=== PATIENT | female | born 1995 | race Caucasian/White ===

== ENCOUNTER 2022-02-20 14:10 | Outpatient (CLI) | payer BC, SELFPAY ==
[2022-02-20 14:46] LABS: Absolute Lymphocyte Count 2.05 X10^3/uL (0.83-4.51); Absolute Neutrophil Count 8.5 X10^3/uL (2.0-7.7); Basophil# 0.01 X10^3/uL; Basophil% 0.1 % (0-1); Eosinophil# 0.08 X10^3/uL; Eosinophils% 0.7 % (0-5); Hematocrit 35.7 % (37-47); Hemoglobin 12.1 g/dL (12.0-15.0); Lymphocyte # 2.05 X10^3/ul (0.83-4.51); Lymphocyte % 17.8 % (19-41); Mean Corp Hgb Conc 33.9 g/dL (32-36); Mean Corpuscular Hgb 29.2 pg (27.0-32.0); Mean Corpuscular Volume 86.2 fL (81-99); Mean Platelet Vol. 11.1 fl (6.2-12.0); Monocyte# 0.75 X10^3/uL; Monocyte% 6.5 % (0-10); NRBC Flagged by Analyzer 0 % (0-5); Neutrophil # 8.54 X10^3/uL (2.7-7.7); Neutrophil % 74.4 % (47-70); Platelet Count 277 K/mm3 (150-450); RBC Distribution Width CV 13.3 % (11.6-14.6); RBC Distribution Width SD 41.3 fl (35.1-43.9); Red Blood Count 4.14 M/mm3 (4.2-5.4); White Blood Count 11.5 K/mm3 (4.4-11.0)
[2022-02-20 16:46] LABS: Amphetamine Urine VISTA NEGATIVE (<1000 ng/mL); Barbiturate Urine VISTA NEGATIVE (< 200 ng/mL); Benzodiazepine Urine VISTA NEGATIVE (< 200 ng/mL); Cocaine Urine VISTA NEGATIVE (< 300 ng/mL); Ecstacy Urine VISTA NEGATIVE (< 500 ng/mL); Methadone Urine VISTA NEGATIVE (< 300 ng/mL); PCP Urine VISTA NEGATIVE (< 25 ng/mL); THC Urine VISTA NEGATIVE (< 50 ng/mL); Vista UDS pH Range 6
[2022-02-21 09:48] LABS: HIV - WCH Non-Reactive (Nonreactive); Hepatitis B Surface Antigen Non-Reactive (Nonreactive); Hepatitis C Antibody Non-Reactive (Nonreactive); Rubella IgG Reactive (Nonreactive); Syphilis Antibodies Non-reactive
[2022-02-23 19:06] LABS: Chlamydia By Nucleic Acid AMP Negative (Negative)
[2022-02-24 15:02] LABS: HPV Reflexed? NOT INDICATED
[2022-02-24 17:53] LABS: Gonococcus By Nucleic Acid AMP Negative (Negative)
[2022-02-25 03:07] LABS: Dilute Russell Viper Venom 31.8 sec (0.0-47.0); Thrombin Time 14.9 sec (0.0-23.0); dPT Confirm Ratio 1.05 Ratio (0.00-1.34)
[2022-02-25 07:32] LABS: Anti-Cardiolipin Ab, IgA, Qn < 9 APL U/mL (0-11); Anti-Cardiolipin Ab, IgG, Qn < 9 GPL U/mL (0-14); Anti-Cardiolipin Ab, IgM, Qn 12 MPL U/mL (0-12); Beta-2-Glycoprotein I IgA <9 (0-25); Beta-2-Glycoprotein I IgG <9 (0-20); Beta-2-Glycoprotein I IgM <9 (0-32); Interpretation Comment: (.)
== END 2022-02-20 23:59 | disposition home or self-care (01) ==
PROVIDERS: PCP Family Medicine; Referring Provider Obstetrics & Gynecology; Visit Provider Obstetrics & Gynecology
DX: Z34.91 Encounter for supervision of normal pregnancy, unspecified, first trimester (principal); N96 Recurrent pregnancy loss; Z3A.08 8 weeks gestation of pregnancy; Z12.4 Encounter for screening for malignant neoplasm of cervix
CPT/HCPCS: 36415; 80307; 85025; 86146; 86147; 86703; 86762; 86780; 86803; 86850; 86900; 86901; 87086; 87340; 87491; 87591; 88175; G0145

== ENCOUNTER → 2022-05-04 | Outpatient (CLI) | payer BC, SELFPAY ==
--- NOTE | 2022-05-04 07:50 | US_ITS ---
STUDY: ABDOMINAL ULTRASOUND - RIGHT UPPER QUADRANT REASON FOR VISIT: Female, 27 years old right upper quadrant pain . The patient is 19 weeks . TECHNIQUE: Ultrasound evaluation of the right upper quadrant was performed with real-time and static garcia-scale imaging. TECHNICAL QUALITY: Adequate. COMPARISON: None. FINDINGS: Liver: The liver measures 16.6 cm. There is normal echogenicity of the liver. The bile ducts are within normal limits. There is hepatic color flow. The direction of portal flow is hepatopetal. There is no demonstrated mass lesion. Gallbladder: Normal distended gallbladder. The gallbladder wall measures 1 mm. There is a negative sonographic Johnson''s sign. There is no pericholecystic fluid. There are multiple echogenic structures within the gallbladder, consistent with multiple small gallstones. Common Bile Duct (C.B.D.): The common bile duct measures 4 mm. Pancreas: Normal size of the head, body and tail of the pancreas. There is normal echogenicity of the pancreas. There is no demonstrated pancreatic mass or cyst. Right Kidney: Normal size of the right kidney. The right kidney measures 10.5 cm x 4.9 cm x 4.2 cm. Normal renal cortex. The right cortex measures 1.1 cm. There is no demonstrated renal mass or cyst. There is no right hydronephrosis. US/Abdomen Limited IMPRESSION: Multiple small gallstones. Electronically Signed: Charles De Leon MD at 10:48 EDT ,
== END | disposition home or self-care (01) ==
LOC: US 07:50
PROVIDERS: PCP Family Medicine; Referring Provider Obstetrics & Gynecology; Visit Provider Obstetrics & Gynecology
DX: O26.899 Other specified pregnancy related conditions, unspecified trimester (principal); R10.11 Right upper quadrant pain; Z3A.00 Weeks of gestation of pregnancy not specified
CPT/HCPCS: 76705

== ENCOUNTER → 2022-05-12 | Outpatient (CLI) | payer BC, SELFPAY ==
[2022-05-12 12:08] LABS: ROM Internal Control Test YES-OK TO RESULT pt. (Internal QC); ROM Patient Test Negative (Negative)
== END | disposition home or self-care (01) ==
PROVIDERS: PCP Family Medicine; Visit Provider Obstetrics & Gynecology
DX: O26.899 Other specified pregnancy related conditions, unspecified trimester (principal); O99.891 Other specified diseases and conditions complicating pregnancy; N89.8 Other specified noninflammatory disorders of vagina; Z3A.00 Weeks of gestation of pregnancy not specified
CPT/HCPCS: 84112; 87070; 87205

== ENCOUNTER → 2022-06-21 | Outpatient (CLI) | payer BC, SELFPAY ==
[2022-06-21 13:22] LABS: Absolute Lymphocyte Count 1.83 X10^3/uL (0.83-4.51); Absolute Neutrophil Count 8.4 X10^3/uL (2.0-7.7); Basophil# 0.02 X10^3/uL; Basophil% 0.2 % (0-1); Eosinophil# 0.07 X10^3/uL; Eosinophils% 0.6 % (0-5); Hematocrit 30.1 % (37-47); Hemoglobin 9.8 g/dL (12.0-15.0); Lymphocyte # 1.83 X10^3/ul (0.83-4.51); Lymphocyte % 16.3 % (19-41); Mean Corp Hgb Conc 32.6 g/dL (32-36); Mean Corpuscular Hgb 29.3 pg (27.0-32.0); Mean Corpuscular Volume 90.1 fL (81-99); Mean Platelet Vol. 10.6 fl (6.2-12.0); Monocyte# 0.79 X10^3/uL; NRBC Flagged by Analyzer 0 % (0-5); Neutrophil # 8.42 X10^3/uL (2.7-7.7); Platelet Count 244 K/mm3 (150-450); RBC Distribution Width CV 13.4 % (11.6-14.6); RBC Distribution Width SD 44.5 fl (35.1-43.9); Red Blood Count 3.34 M/mm3 (4.2-5.4); White Blood Count 11.2 K/mm3 (4.4-11.0)
[2022-06-21 13:33] LABS: Glucose Challenge Gest 1H 50g 120 mg/dL (70-140)
[2022-06-21 14:07] LABS: HIV - WCH Non-Reactive (Nonreactive); Syphilis Antibodies Non-reactive
== END | disposition home or self-care (01) ==
LOC: PAVLAB 12:55
PROVIDERS: Registered Nurse; PCP Family Medicine; Referring Provider Obstetrics & Gynecology; Visit Provider Obstetrics & Gynecology
DX: O09.90 Supervision of high risk pregnancy, unspecified, unspecified trimester (principal); Z3A.00 Weeks of gestation of pregnancy not specified
CPT/HCPCS: 36415; 82950; 85025; 86703; 86780

== ENCOUNTER → 2022-07-10 | Outpatient (CLI) | payer BC, SELFPAY | END | disposition home or self-care (01) | PROVIDERS: PCP Family Medicine; Referring Provider Registered Nurse; Visit Provider Registered Nurse | DX: O26.20 Pregnancy care for patient with recurrent pregnancy loss, unspecified trimester (principal); O99.891 Other specified diseases and conditions complicating pregnancy; R30.0 Dysuria; Z3A.00 Weeks of gestation of pregnancy not specified | CPT/HCPCS: 87086 ==

== ENCOUNTER → 2022-07-28 | Outpatient (CLI) | payer BC, SELFPAY ==
[2022-07-28 09:53] LABS: Absolute Lymphocyte Count 1.54 X10^3/uL (0.83-4.51); Absolute Neutrophil Count 6.1 X10^3/uL (2.0-7.7); Basophil# 0.03 X10^3/uL; Basophil% 0.4 % (0-1); Eosinophils% 1.2 % (0-5); Hematocrit 33.9 % (37-47); Hemoglobin 10.7 g/dL (12.0-15.0); Lymphocyte # 1.54 X10^3/ul (0.83-4.51); Lymphocyte % 18.2 % (19-41); Mean Corp Hgb Conc 31.6 g/dL (32-36); Mean Corpuscular Hgb 29.2 pg (27.0-32.0); Mean Corpuscular Volume 92.6 fL (81-99); Mean Platelet Vol. 11.2 fl (6.2-12.0); Monocyte# 0.64 X10^3/uL; Monocyte% 7.5 % (0-10); NRBC Flagged by Analyzer 0 % (0-5); Neutrophil # 6.07 X10^3/uL (2.7-7.7); Neutrophil % 71.5 % (47-70); Platelet Count 205 K/mm3 (150-450); RBC Distribution Width CV 14.7 % (11.6-14.6); RBC Distribution Width SD 50.3 fl (35.1-43.9); Red Blood Count 3.66 M/mm3 (4.2-5.4); White Blood Count 8.5 K/mm3 (4.4-11.0)
[2022-07-28 10:12] LABS: Iron Binding Capacity,Total 480 ug/dL (250-450)
== END | disposition home or self-care (01) ==
LOC: PAVLAB 09:38
PROVIDERS: PCP Family Medicine; Referring Provider Obstetrics & Gynecology; Visit Provider Obstetrics & Gynecology
DX: O99.019 Anemia complicating pregnancy, unspecified trimester (principal); Z3A.00 Weeks of gestation of pregnancy not specified
CPT/HCPCS: 36415; 83550; 85025

== ENCOUNTER → 2022-07-31 | Outpatient (CLI) | payer BC, SELFPAY ==
--- NOTE | 2022-07-31 08:55 | US_ITS ---
STUDY: SECOND AND THIRD TRIMESTER OBSTETRICAL ULTRASOUND REASON FOR EXAM: Female, 27 years old growth LMP: 12/17/2021. TECHNIQUE: Transabdominal TECHNICAL QUALITY: Adequate. PRIOR ULTRASOUND: None. FINDINGS: There is a single intrauterine fetus. The fetus is in a cephalic presentation. There is demonstrated cardiac activity with a heart rate of 133 bpm. There is a normal amniotic fluid volume. The largest amniotic fluid pocket measures 4.0 cm. The amniotic fluid index (KATHARINA) is 9.3 cm. The placenta is anterior in location and is not low lying. There are Grade 1 placental changes. The cervix measures 4.1 cm in length. The adnexal regions are not visualized. BIOMETRY: BPD: 8.22 cm: 33 weeks, 0 days HC: 29.69 cm: 32 weeks, 6 days AC: 27.34 cm: 31 weeks, 3 days FL: 5.9 cm: 30 weeks, 5 days CI: 81% FL/BPD: 72% FL/HC: FL/AC: 22% HC/AC: 1.09 age by current US: 31 weeks, 6 days. RAJNI by current US: 09/26/2022. Estimated weight: 1790 grams, +/- 2068 grams, 20 %. Age by LMP: 32 weeks, 2 days. RAJNI by LMP: 09/23/2022. US/OB Limited With Biometrics IMPRESSION: Single live uterine gestation with mean gestational age of 31 weeks and 6 days. Electronically Signed: Charles De Leon MD at 14:49 EST ,
== END | disposition home or self-care (01) ==
LOC: OPUS 08:53
PROVIDERS: PCP Family Medicine; Visit Provider Obstetrics & Gynecology
DX: Z34.90 Encounter for supervision of normal pregnancy, unspecified, unspecified trimester (principal); Z86.16 Personal history of COVID-19
CPT/HCPCS: 76816

== ENCOUNTER → 2022-08-28 | Outpatient (CLI) | payer BC, SELFPAY ==
--- NOTE | 2022-08-28 08:59 | US_ITS ---
STUDY: SECOND AND THIRD TRIMESTER OBSTETRICAL ULTRASOUND REASON FOR EXAM: Female, 27 years old growth LMP: 12/17/2021. TECHNIQUE: Transabdominal TECHNICAL QUALITY: Adequate. PRIOR ULTRASOUND: Comparison is made with prior study dated 07/31/2022. FINDINGS: There is a single intrauterine fetus. The fetus is in a cephalic presentation. There is demonstrated cardiac activity with a heart rate of 137 bpm. There is a normal amniotic fluid volume. The largest amniotic fluid pocket measures 3.9 cm. The amniotic fluid index (KATHARINA) is 11.3 cm. The placenta is anterior in location and is not low lying. There are Grade 1 placental changes. The cervix measures 3 cm in length. The adnexal regions are not visualized. BIOMETRY: BPD: 9.04 cm: 36 weeks, 4 days HC: 33.27 cm: 38 weeks, 0 days AC: 32.78 cm: 36 weeks, 5 days FL: 6.7 cm: 34 weeks, 3 days CI: 79% FL/BPD: 74% FL/HC: FL/AC: 20% HC/AC: 1.01 age by current US: 36 weeks, 6 days. RAJNI by current US: 09/19/2022. Estimated weight: 2875 grams, +/- 431 grams, 50 %. age by prior US: 35 weeks, 6 days. RAJNI by prior US: 09/26/2022. Age by LMP: 36 weeks, 2 days. RAJNI by LMP: 09/23/2022. US/OB Limited With Biometrics IMPRESSION: Single live uterine gestation with a mean gestational age of 35 weeks and 6 days. The measurements obtained today fall within the normal expected range. Electronically Signed: Charles De Leon MD at 14:51 EST ,
[2022-08-28 11:48] LABS: Basophil# 0.03 X10^3/uL; Basophil% 0.3 % (0-1); Eosinophil# 0.05 X10^3/uL; Eosinophils% 0.6 % (0-5); Hematocrit 35.2 % (37-47); Hemoglobin 10.9 g/dL (12.0-15.0); Lymphocyte % 19.8 % (19-41); Mean Corpuscular Hgb 29.3 pg (27.0-32.0); Mean Corpuscular Volume 94.6 fL (81-99); Mean Platelet Vol. 11.9 fl (6.2-12.0); Monocyte# 0.69 X10^3/uL; NRBC Flagged by Analyzer 0 % (0-5); Platelet Count 158 K/mm3 (150-450); RBC Distribution Width SD 51.7 fl (35.1-43.9); Red Blood Count 3.72 M/mm3 (4.2-5.4); White Blood Count 8.6 K/mm3 (4.4-11.0)
== END | disposition home or self-care (01) ==
PROVIDERS: PCP Family Medicine; Referring Provider Obstetrics & Gynecology; Visit Provider Obstetrics & Gynecology
DX: O09.90 Supervision of high risk pregnancy, unspecified, unspecified trimester (principal)
CPT/HCPCS: 36415; 76816; 85025; 87081

== ENCOUNTER 2022-09-18 07:00 | Inpatient (IN) | payer BC, SELFPAY ==
[2022-09-18] VITALS (29 sets, daily range): BP systolic 97–166; BP diastolic 57–120; PULSE 64–107; RESP 16; TEMP 36.5–36.6; O2SAT 83–99; BMI 31.7
--- NOTE | 2022-09-18 07:45 | HP.PCM.OB_ITS ---
HPI - General General Date of Admission: 09/18/22 HPI Narrative CRUZ ALVAREZ, is a 27 F who presents for IOL secondary to hisotry of stillbirth. Maternal Data Information RAJNI Calculator Estimated Delivery Date Method Current WG Current Estimate 09/23/22 Ultrasound #1 39w 2d Other Estimates 09/30/22 LMP (Certain) 38w 2d PFSH PFSH Home Medications famotidine 40 mg tablet 40 mg PO DAILY 02/15/22 [History Last Taken Unknown] multivitamin no.47-iron fum 27 mg-folate no.1 1 mg-dha 300 mg capsule (PNV-DHA) cap PO 02/15/22 [History Last Taken Unknown] aspirin 81 mg tablet,delayed release (Adult Aspirin Regimen) 81 mg PO DAILY 04/19/22 [History Last Taken Unknown] Allergy/AdvReac Type Severity Reaction Status Date / Time No Known Allergies Allergy Verified 09/15/22 08:27 Social History adopted: No household members: spouse housing: house current occupational status: employed 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 [employer] current occupational exposures/hazards: No pets and animals: Yes pets and animals: dog(s) history of recent travel: No sexually active: Yes Smoking Status: Never smoker alcohol intake: former details: socially on occasion substance use type: does not use well-balanced diet: about half the time caffeine: Yes Type: coffee Number of servings: 1 eating out: 1-3 times/week during the past year weight has: remained stable what type of physical activity do you participate in: walking frequency: 1-2 times per week duration: 15-30 minutes/day [place]/zoroastrianism: [employer] seatbelt use: always do you feel safe at home: Yes additional social history: Spouse Ag Alvarez- Mobility Architect History 5 Elective abortions Hx Para Spontaneous abortions 4 Hx # Term Pregnancies Ectopic pregnancies Hx # Pregnancies Multiple births # of living children 0 Past Pregnancies Del. Date Name GA/Weeks Outcome Route Bth Weight Infant Gen Labor Lgth Anesthesia Del Locatn Provider FOB 03/09/21 [facility] 26 still Delivery Date: 03/09/21 Last Updated by: MD gamaliel Guzman [facility] Visit Details Expected Delivery Route/Plan Labor Preferences- CB/BF classes: enc. labor support person: Ag labor intervention preferences: [] pain management options preferred: epidural cut cord/dad catch: [] : plans PP control planned: [] discussed possible routes of delivery and associated risks: [] special requests: [] Plans Covid status: [] Flu vaccine: [] Tdap vaccine: [] Rhogam: na LARC form signed: completed. Problem list reviewed and updated with the most current plan of care details and appropriate orders placed. Relevant counseling for the gestational age provided. Continue routine care and follow up unless otherwise noted in visit notes/problem list details OB Flowsheet Initial Weight: Not Recorded Date -?-?-?-?-?-?-?-?-?-?-?-?- EGA Weight BP Urine Prot -?-?-?-?-?-?-?-?-?-?-?-?- Glucose FHR FuHt Pres Dilation -?-?-?-?-?-?-?-?-?-?-?-?- Effaced St Visit Note 02/20/22 -?-?-?-?-?-?-?-?-?-?-?-?- 9w 2d 142 lb 123/80 -?-?-?-?-?-?-?-?-?-?-?-?- 190 -?-?-?-?-?-?-?-?-?-?-?-?- SM- CRL cons wit h LMP 03/09/22 -?-?-?-?-?-?-?-?-?-?-?-?- 11w 5d 140 lb 112/76 Negative -?-?-?-?-?-?-?-?-?-?-?-?- Negative 187 -?-?-?-?-?-?-?-?-?-?-?-?- JV- CRL today lo oks to be exactly a week further along than her LMP and structurally looks more like an 12 week fetus. new due date given. Today is the day last year that she lost her baby at 29 weeks 03/22/22 -?-?-?-?-?-?-?-?-?-?-?-?- 13w 4d 141 lb 112/71 Negative -?-?-?-?-?-?-?-?-?-?-?-?- Negative 170 -?-?-?-?-?-?-?-?-?-?-?-?- JV- bedside scan normal today. nausea is improving. anatomy scan ordered 04/19/22 -?-?-?-?-?-?-?-?-?-?-?-?- 17w 4d 144 lb 6 oz 118/70 Nega tive -?-?-?-?-?-?-?-?-?-?-?-?- Negative 163 -?-?-?-?-?-?-?-?-?-?-?-?- -No VB, radha ng. Feeling light flutters. anatomy 05/0105/12/22 -?-?-?-?-?-?-?-?-?-?-?-?- 20w 6d 143 lb 109/65 Negative -?-?-?-?-?-?-?-?-?-?-?-?- Negative 155 -?-?-?-?-?-?-?-?-?-?-?--?- JV- pt being see n today for leaking fluid. She has a yeast infection on exam. rx for terconazole cream sent to pharmacy. rom+ ordered per her request. no pooling of fluid present, 05/17/22 -?-?-?-?-?-?-?-?-?-?-?-?- 21w 4d 146 lb 6 oz 118/78 Nega tive -?-?-?-?-?-?-?-?-?-?-?-?- Negative 155 -?-?-?-?-?-?-?-?-?-?-?-?- JV- pt is kaylee g nervous as we start to approach the time in her that she lost her last child (26 weeks) wants to come in q 2 weeks. 05/29/22 -?-?-?-?-?-?-?-?-?-?-?-?- 23w 2d 146 lb 2 oz 111/76 Nega tive -?-?-?-?-?-?-?-?-?-?-?-?- Negative 150 23 -?-?-?-?-?-?-?-?-?-?-?-?- LC- feeling move ment. increased anxiety. LC- feeling movement. increa sed anxiety.to start weekly NST r/t still at 26 weeks. 06/21/22 -?-?-?-?-?-?-?-?-?-?-?-?- 26w 4d 148 lb 4 oz 109/67 Nega tive -?-?-?-?-?-?-?-?-?-?-?-?- Negative 150 26 -?-?-?-?-?-?-?-?-?-?-?-?- LC- no vb/lof. r eassuring NST. reviewed 28 week labs. LC- no vb/lof. reassuring NS T for hx of demise at 26 weeks. reviewed 28 week labs. 07/06/22 -?-?-?-?-?-?-?-?-?-?-?-?- 28w 5d 153 lb 2 oz 106/71 Nega tive -?-?-?-?-?-?-?-?-?-?-?-?- Negative -?-?-?-?-?-?-?-?-?-?-?-?- JV- reactive NST today. 07/10/22 -?-?-?-?-?-?-?-?-?-?-?-?- 29w 2d 153 lb 6 oz 110/66 Nega tive -?-?-?-?-?-?-?-?-?-?-?-?- Negative 147 -?-?-?-?-?-?-?-?-?-?-?-?- LC- having cramp ing. desired FHR check. obtaining clean catch urine. LC- having cramping. desired FHR check. obtaining clean catch urine. enc increased hydration and rest 07/14/22 -?-?-?-?-?-?-?-?-?-?-?-?- 29w 6d Negative -?-?-?-?-?-?-?-?-?-?-?-?- Negative 130 -?-?-?-?-?-?-?-?-?-?-?-?- JV- pt c/o infre quent flushing of face and tachycadia. She denies chest pain, shortness of breath, changes in vision or headache. it happened when sitting for a prolonged period of time on our nst. Nst reactive. 07/20/22 -?-?-?-?-?-?-?-?-?-?-?-?- 30w 5d 156 lb 110/73 Negative -?-?-?-?-?-?-?-?-?-?-?--?- Negative 130 -?-?-?-?-?-?-?-?-?-?-?-?- SM- no vb lof go od fm no regular ctx 07/28/22 -?-?-?-?-?-?-?-?-?-?-?-?- 31w 6d 157 lb 101/67 Negative -?-?-?-?-?-?-?-?-?-?-?-?- Negative 140 -?-?-?-?-?-?-?-?-?-?-?-?- JV- nst reactive . pt still having episodes discussed above of tachycardia, tunnel vision, dizziness. (x 2 last week) plan to check tibc, iron, and rpt cbc. hg was 9 and is taking iron. 08/01/22 -?-?-?-?-?-?-?-?-?-?-?-?- 32w 3d 157 lb 8 oz 102/73 Nega tive -?-?-?-?-?-?-?-?-?-?-?-?- Negative 140 -?-?-?-?-?-?-?-?-?-?-?-?- MH-NST only reac tive. 08/08/22 -?-?-?-?-?-?-?-?-?-?-?-?- 33w 3d 157 lb 4 oz 111/72 Nega tive -?-?-?-?-?-?-?-?-?-?-?-?- Negative 140 -?-?-?-?-?-?-?-?-?-?-?-?- SM- no vb lof go od fm no regular ctx 08/17/22 -?-?-?-?-?-?-?-?-?-?-?-?- 34w 5d 158 lb 6 oz 114/74 Nega tive -?-?-?-?-?-?-?-?-?-?-?-?- Negative 140 34 -?-?-?-?-?-?-?-?-?-?-?-?- JV-pt is somewha t tearful today about lessened FM.due to h/o loss will increase testing to twice weekly 08/21/22 -?-?-?-?-?-?-?-?-?-?-?-?- 35w 2d 160 lb 102/80 Negative -?-?-?-?-?-?-?-?-?-?-?-?- Negative 140 -?-?-?-?-?-?-?-?-?-?-?-?- MH-NST only reac tive 08/28/22 -?-?-?-?-?-?-?-?-?-?-?-?- 36w 2d 160 lb 8 oz 102/59 Nega tive -?-?-?-?-?-?-?-?-?-?-?-?- Negative 130 1.5 -?-?-?-?-?-?-?-?-?-?-?-?- 50 -3 SM- gbs do ne no vb lof good fm no regular ctx. discussed IOL by 39 if reassuring FM and testing. 09/01/22 -?-?-?-?-?-?-?-?-?-?-?-?- 36w 6d 161 lb 6 oz 109/66 Nega tive -?-?-?-?-?-?-?-?-?-?-?-?- Negative 130 -?-?-?-?-?-?-?-?-?-?-?-?- JV- nst reactive . plan 39 week IOL 09/04/22 -?-?-?-?-?-?-?-?-?-?-?-?- 37w 2d 162 lb 107/67 Negative -?-?-?-?-?-?-?-?-?-?-?-?- Negative 130 2 -?-?-?-?-?-?-?-?-?-?-?-?- 50 -3 LC- gbs ne g. reactive nst. good fm. no lof/vb, occ ctx, not regular. 09/11/22 -?-?-?-?-?-?-?-?-?-?-?-?- 38w 2d 163 lb 4 oz 119/83 Nega tive -?-?-?-?-?-?-?-?-?-?-?-?- Negative 140 38 3 2 -?-?-?-?-?-?-?-?-?-?-?-?- 60 -2 LC- reacti ve nst. no consistent ctx. +dizziness, occ nausea over the weekend. normal orthostatic BP. 3hour PP glucose 127. LC- reactive nst. no consist ent ctx. +dizziness, occ nausea over the weekend. normal orthostatic BP. 3hour PP glucose 127. IOL to be scheduled for the . LC- reactive nst. no consist ent ctx. +dizziness, occ nausea over the weekend. normal orthostatic BP. 3hour PP glucose 127. IOL scheduled for the at 7am 09/15/22 -?-?-?-?-?-?-?-?-?-?-?-?- 38w 6d 164 lb 8 oz 107/72 Nega tive -?-?-?-?-?-?-?-?-?-?-?-?- Negative 140 3 -?-?-?-?-?-?-?-?-?-?-?-?- 60 -2 SM- no vb lof good fm no regualr ctx 09/18/22 -?-?-?-?-?-?-?-?-?-?-?-?- 39w 2d 168 lb 2 oz 123/74 -?-?-?-?-?-?-?-?-?-?-?-?- -?-?-?-?-?-?-?-?-?-?-?-?- NST FHR Rate Baby A Baseline: 130 Variability:: Moderate Accelerations:: 15 x 15 Decelerations:: None NST Reactive:: Yes FHR Category:: Category I Uterine Activity:: irregular ROS Constitutional Constitutional: Reports systems reviewed and no addt'l complaints, except as documented Eyes Eyes: Denies change in vision ENT HEENT: Reports systems reviewed and no addt'l complaints, except as documented; Denies headache(s) Cardiovascular Cardiovascular: Reports systems reviewed and no addt'l complaints, except as documented; Denies chest pain or dyspnea Respiratory/Chest Respiratory/Chest: Reports systems reviewed and no addt'l complaints, except as documented Gastrointestinal Gastrointestinal: Reports systems reviewed and no addt'l complaints, except as documented; Denies abdominal pain Genitourinary Genitourinary: Reports systems reviewed and no addt'l complaints, except as documented, contractions Details: present (irregular) and movement Details: present; Denies dysuria or genital lesions Musculoskeletal Musculoskeletal: Reports systems reviewed and no addt'l complaints, except as documented Neurologic Neurologic: Reports systems reviewed and no addt'l complaints, except as d ocumented Endocrine Endocrinology: Reports systems reviewed and no addt'l complaints, except as documented Vital Signs Vital Signs Vital Signs: 09/18/22 07:13 09/18/22 07:13 Pulse Rate 94 Blood Pressure 123/74 H BP Systolic 123 BP Diastolic 74 Weight Weight: 168 lb 2 oz Body Mass Index (BMI) 31.7 Physical Exam Const alert, oriented x3, no apparent distress and healthy appearing HEENT normocephalic and moist oral mucous membranes Head and Scalp: atraumatic Neck full ROM, no lymphadenopathy, supple and thyroid normal General: trachea midline Lymph Lymphatic: no lymphadenopathy noted Chest inspection of chest normal Resp normal respiratory effort Cardio regular rate GI normal to inspection, nondistended, normoactive bowel sounds, soft to palpation and non-tender Inspection: gravid external exam normal Manual OB Exam: estimated gestational size appropriate, presentation cephalic, dilated, effaced and station Extremity normal to inspection General Extremity: Negative for edema Skin no rashes or lesions noted Neuro no focal motor deficits and deep tendon reflexes 2+ bilaterally Motor Exam: strength 5/5 throughout and clonus absent Psych mental status grossly normal Labs Labs Labs: Blood Type B POSITIVE Antibody Screen NEGATIVE Hct 35.2 % (37-47) L Hgb 10.9 g/dL (12.0-15.0) L Obstetrics US Syphilis Total Ab Non-reactive Rubella IgG Antibody Reactive (Nonreactive) Hep Bs Antigen Non-Reactive (Nonreactive) Chlamydia DNA (SANDRA) Negative (Negative) Neisseria gonorrhoeae DNA (SANDRA) Negative (Negative) HIV 1&2 Antibody Non-Reactive (Nonreactive) Glucose 1 Hr 50 gm 120 mg/dL (70-140) Assessment & Plan (1) Recurrent loss: COMMENT: 3 first trimester losses and 1 26 week loss. apl panel ordered/neg (2) MTHFR (methylene THF reductase) deficiency and homocystinuria: COMMENT: folate Baby ASA (3) Supervision of high risk , unspecified, unspecified trimester: COMMENT: [id number] RAJNI 09/30/22 PC ([facility]) Spouse- Ag (4) : QUALIFIERS: Weeks of gestation: 37 weeks Qualified Code(s): Z3A.37 - 37 weeks gestation of COMMENT: GBS Negative, declined NIPT & carrier testing, nl anatomy (5) History of COVID-19: COMMENT: 01/30/22 + Covid, asa 81 mg daily, 32 & 36 week Growth US 32 week US NL- 50% growth (6) History of stillbirth: COMMENT: 26 weeks. dtr [facility] wkly nts starting 28 weeks, discuss twice weekly as needed after 32 weeks. 07/31 nl growth 1790g 20% (7) Anemia affecting : COMMENT: iron given (8) Encounter for induction of labor: PLAN: Plan Patient presents IOL, plan management for with pitocin/AROM. Pain management: plans epidural. GBS negative. Management of any complications: none I have reviewed the [facility] and made any clinically relevant updates.
--- NOTE | 2022-09-18 07:45 | PCM.HP.OB ---
HPI - General General Date of Admission: 09/18/22 HPI Narrative CRUZ ALVAREZ, is a 27 F who presents for IOL secondary to hisotry of stillbirth. Maternal Data Information RAJNI Calculator Estimated Delivery Date Method Current WG Current Estimate 09/23/22 Ultrasound #1 39w 2d Other Estimates 09/30/22 LMP (Certain) 38w 2d PFSH PFSH Home Medications famotidine 40 mg tablet 40 mg PO DAILY 02/15/22 [History Last Taken Unknown] multivitamin no.47-iron fum 27 mg-folate no.1 1 mg-dha 300 mg capsule (PNV-DHA) cap PO 02/15/22 [History Last Taken Unknown] aspirin 81 mg tablet,delayed release (Adult Aspirin Regimen) 81 mg PO DAILY 04/19/22 [History Last Taken Unknown] Allergy/AdvReac Type Severity Reaction Status Date / Time No Known Allergies Allergy Verified 09/15/22 08:27 Social History adopted: No household members: spouse housing: house current occupational status: employed 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 [employer] current occupational exposures/hazards: No pets and animals: Yes pets and animals: dog(s) history of recent travel: No sexually active: Yes Smoking Status: Never smoker alcohol intake: former details: socially on occasion substance use type: does not use well-balanced diet: about half the time caffeine: Yes Type: coffee Number of servings: 1 eating out: 1-3 times/week during the past year weight has: remained stable what type of physical activity do you participate in: walking frequency: 1-2 times per week duration: 15-30 minutes/day [place]/adventist: Evangelical seatbelt use: always do you feel safe at home: Yes additional social history: Spouse 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 Date Name GA/Weeks Outcome Route Bth Weight Infant Gen Labor Lgth Anesthesia Del Locatn Provider FOB 03/09/21 [place] 26 still Delivery Date: 03/09/21 Last Updated by: MD gamaliel Guzman [facility] [place] Visit Details Expected Delivery Route/Plan Labor Preferences- CB/BF classes: enc. labor support person: Ag labor intervention preferences: [] pain management options preferred: epidural cut cord/dad catch: [] : plans PP control planned: [] discussed possible routes of delivery and associated risks: [] special requests: [] Plans Covid status: [] Flu vaccine: [] Tdap vaccine: [] Rhogam: na LARC form signed: completed. Problem list reviewed and updated with the most current plan of care details and appropriate orders placed. Relevant counseling for the gestational age provided. Continue routine care and follow up unless otherwise noted in visit notes/problem list details OB Flowsheet Initial Weight: Not Recorded Date <del>?</del> EGA Weight BP Urine Prot <del>?</del> Glucose FHR FuHt Pres Dilation <del>?</del> Effaced St Visit Note 02/20/22 <del>?</del> 9w 2d 142 lb 123/80 <del>?</del> 190 <del>?</del> SM- CRL cons with LMP 03/09/22 <del>?</del> 11w 5d 140 lb 112/76 Negative <del>?</del> Negative 187 <del>?</del> JV- CRL today looks to be exactly a week further along than her LMP and structurally looks more like an 12 week fetus. new due date given. Today is the day last year that she lost her baby at 29 weeks 03/22/22 <del>?</del> 13w 4d 141 lb 112/71 Negative <del>?</del> Negative 170 <del>?</del> JV- bedside scan normal today. nausea is improving. anatomy scan ordered 04/19/22 <del>?</del> 17w 4d 144 lb 6 oz 118/70 Negative <del>?</del> Negative 163 <del>?</del> MH-No VB, cramping. Feeling light flutters. anatomy US 05/0105/12/22 <del>?</del> 20w 6d 143 lb 109/65 Negative <del>?</del> Negative 155 <del>?</del> JV- pt being seen today for leaking fluid. She has a yeast infection on exam. rx for terconazole cream sent to pharmacy. rom+ ordered per her request. no pooling of fluid present, 05/17/22 <del>?</del> 21w 4d 146 lb 6 oz 118/78 Negative <del>?</del> Negative 155 <del>?</del> JV- pt is getting nervous as we start to approach the time in her that she lost her last child (26 weeks) wants to come in q 2 weeks. 05/29/22 <del>?</del> 23w 2d 146 lb 2 oz 111/76 Negative <del>?</del> Negative 150 23 <del>?</del> LC- feeling movement. increased anxiety. LC- feeling movement. increased anxiety.to start weekly NST r/t still at 26 weeks. 06/21/22 <del>?</del> 26w 4d 148 lb 4 oz 109/67 Negative <del>?</del> Negative 150 26 <del>?</del> LC- no vb/lof. reassuring NST. reviewed 28 week labs. LC- no vb/lof. reassuring NST for hx of demise at 26 weeks. reviewed 28 week labs. 07/06/22 <del>?</del> 28w 5d 153 lb 2 oz 106/71 Negative <del>?</del> Negative <del>?</del> JV- reactive NST today. 07/10/22 <del>?</del> 29w 2d 153 lb 6 oz 110/66 Negative <del>?</del> Negative 147 <del>?</del> LC- having cramping. desired FHR check. obtaining clean catch urine. LC- having cramping. desired FHR check. obtaining clean catch urine. enc increased hydration and rest 07/14/22 <del>?</del> 29w 6d Negative <del>?</del> Negative 130 <del>?</del> JV- pt c/o infrequent flushing of face and tachycadia. She denies chest pain, shortness of breath, changes in vision or headache. it happened when sitting for a prolonged period of time on our nst. Nst reactive. 07/20/22 <del>?</del> 30w 5d 156 lb 110/73 Negative <del>?</del> Negative 130 <del>?</del> SM- no vb lof good fm no regular ctx 07/28/22 <del>?</del> 31w 6d 157 lb 101/67 Negative <del>?</del> Negative 140 <del>?</del> JV- nst reactive. pt still having episodes discussed above of tachycardia, tunnel vision, dizziness. (x 2 last week) plan to check tibc, iron, and rpt cbc. hg was 9 and is taking iron. 08/01/22 <del>?</del> 32w 3d 157 lb 8 oz 102/73 Negative <del>?</del> Negative 140 <del>?</del> MH-NST only reactive. 08/08/22 <del>?</del> 33w 3d 157 lb 4 oz 111/72 Negative <del>?</del> Negative 140 <del>?</del> SM- no vb lof good fm no regular ctx 08/17/22 <del>?</del> 34w 5d 158 lb 6 oz 114/74 Negative <del>?</del> Negative 140 34 <del>?</del> JV-pt is somewhat tearful today about lessened FM.due to h/o loss will increase testing to twice weekly 08/21/22 <del>?</del> 35w 2d 160 lb 102/80 Negative <del>?</del> Negative 140 <del>?</del> MH-NST only reactive 08/28/22 <del>?</del> 36w 2d 160 lb 8 oz 102/59 Negative <del>?</del> Negative 130 1.5 <del>?</del> 50 -3 SM- gbs done no vb lof good fm no regular ctx. discussed IOL by 39 if reassuring FM and testing. 09/01/22 <del>?</del> 36w 6d 161 lb 6 oz 109/66 Negative <del>?</del> Negative 130 <del>?</del> JV- nst reactive. plan 39 week IOL 09/04/22 <del>?</del> 37w 2d 162 lb 107/67 Negative <del>?</del> Negative 130 2 <del>?</del> 50 -3 LC- gbs neg. reactive nst. good fm. no lof/vb, occ ctx, not regular. 09/11/22 <del>?</del> 38w 2d 163 lb 4 oz 119/83 Negative <del>?</del> Negative 140 38 3 2 <del>?</del> 60 -2 LC- reactive nst. no consistent ctx. +dizziness, occ nausea over the weekend. normal orthostatic BP. 3hour PP glucose 127. LC- reactive nst. no consistent ctx. +dizziness, occ nausea over the weekend. normal orthostatic BP. 3hour PP glucose 127. IOL to be scheduled for the . LC- reactive nst. no consistent ctx. +dizziness, occ nausea over the weekend. normal orthostatic BP. 3hour PP glucose 127. IOL scheduled for the at 7am 09/15/22 <del>?</del> 38w 6d 164 lb 8 oz 107/72 Negative <del>?</del> Negative 140 3 <del>?</del> 60 -2 SM- no vb lof good fm no regualr ctx 09/18/22 <del>?</del> 39w 2d 168 lb 2 oz 123/74 <del>?</del> <del>?</del> NST FHR Rate Baby A Baseline: 130 Variability:: Moderate Accelerations:: 15 x 15 Decelerations:: None NST Reactive:: Yes FHR Category:: Category I Uterine Activity:: irregular ROS Constitutional Constitutional: Reports systems reviewed and no addt'l complaints, except as documented Eyes Eyes: Denies change in vision ENT HEENT: Reports systems reviewed and no addt'l complaints, except as documented; Denies headache(s) Cardiovascular Cardiovascular: Reports systems reviewed and no addt'l complaints, except as documented; Denies chest pain or dyspnea Respiratory/Chest Respiratory/Chest: Reports systems reviewed and no addt'l complaints, except as documented Gastrointestinal Gastrointestinal: Reports systems reviewed and no addt'l complaints, except as documented; Denies abdominal pain Genitourinary Genitourinary: Reports systems reviewed and no addt'l complaints, except as documented, contractions Details: present (irregular) and movement Details: present; Denies dysuria or genital lesions Musculoskeletal Musculoskeletal: Reports systems reviewed and no addt'l complaints, except as documented Neurologic Neurologic: Reports systems reviewed and no addt'l complaints, except as documented Endocrine Endocrinology: Reports systems reviewed and no addt'l complaints, except as documented Vital Signs Vital Signs Vital Signs: 09/18/22 07:13 09/18/22 07:13 Pulse Rate 94 Blood Pressure 123/74 H BP Systolic 123 BP Diastolic 74 Weight Weight: 168 lb 2 oz Body Mass Index (BMI) 31.7 Physical Exam Const alert, oriented x3, no apparent distress and healthy appearing HEENT normocephalic and moist oral mucous membranes Head and Scalp: atraumatic Neck full ROM, no lymphadenopathy, supple and thyroid normal General: trachea midline Lymph Lymphatic: no lymphadenopathy noted Chest inspection of chest normal Resp normal respiratory effort Cardio regular rate GI normal to inspection, nondistended, normoactive bowel sounds, soft to palpation and non-tender Inspection: gravid external exam normal Manual OB Exam: estimated gestational size appropriate, presentation cephalic, dilated, effaced and station Extremity normal to inspection General Extremity: Negative for edema Skin no rashes or lesions noted Neuro no focal motor deficits and deep tendon reflexes 2+ bilaterally Motor Exam: strength 5/5 throughout and clonus absent Psych mental status grossly normal Labs Labs Labs: Blood Type B POSITIVE Antibody Screen NEGATIVE Hct 35.2 % (37-47) L Hgb 10.9 g/dL (12.0-15.0) L Obstetrics US Syphilis Total Ab Non-reactive Rubella IgG Antibody Reactive (Nonreactive) Hep Bs Antigen Non-Reactive (Nonreactive) Chlamydia DNA (SANDRA) Negative (Negative) Neisseria gonorrhoeae DNA (SANDRA) Negative (Negative) HIV 1&2 Antibody Non-Reactive (Nonreactive) Glucose 1 Hr 50 gm 120 mg/dL (70-140) Assessment & Plan (1) Recurrent loss: COMMENT: 3 first trimester losses and 1 26 week loss. apl panel ordered/neg (2) MTHFR (methylene THF reductase) deficiency and homocystinuria: COMMENT: folate Baby ASA (3) Supervision of high risk , unspecified, unspecified trimester: COMMENT: [id number] RAJNI 09/30/22 PC ([place]) Spouse- Ag (4) : QUALIFIERS: Weeks of gestation: 37 weeks Qualified Code(s): Z3A.37 - 37 weeks gestation of COMMENT: GBS Negative, declined NIPT & carrier testing, nl anatomy (5) History of COVID-19: COMMENT: 01/30/22 + Covid, asa 81 mg daily, 32 & 36 week Growth US 32 week US NL- 50% growth (6) History of stillbirth: COMMENT: 26 weeks. dtr [place] wkly nts starting 28 weeks, discuss twice weekly as needed after 32 weeks. 07/31 nl growth 1790g 20% (7) Anemia affecting : COMMENT: iron given (8) Encounter for induction of labor: PLAN: Plan Patient presents IOL, plan management for with pitocin/AROM. Pain management: plans epidural. GBS negative. Management of any complications: none I have reviewed the [facility] and made any clinically relevant updates.
[2022-09-18 08:18] LABS: Absolute Lymphocyte Count 1.57 X10^3/uL (0.83-4.51); Absolute Neutrophil Count 5.3 X10^3/uL (2.0-7.7); Basophil# 0.02 X10^3/uL; Basophil% 0.3 % (0-1); Eosinophil# 0.07 X10^3/uL; Eosinophils% 0.9 % (0-5); Hematocrit 32.6 % (37-47); Hemoglobin 10.6 g/dL (12.0-15.0); Lymphocyte # 1.57 X10^3/ul (0.83-4.51); Lymphocyte % 20.5 % (19-41); Mean Corp Hgb Conc 32.5 g/dL (32-36); Mean Corpuscular Hgb 30.1 pg (27.0-32.0); Mean Corpuscular Volume 92.6 fL (81-99); Mean Platelet Vol. 12.1 fl (6.2-12.0); Monocyte# 0.64 X10^3/uL; Monocyte% 8.3 % (0-10); NRBC Flagged by Analyzer 0 % (0-5); Neutrophil # 5.31 X10^3/uL (2.7-7.7); Neutrophil % 69.2 % (47-70); Platelet Count 158 K/mm3 (150-450); RBC Distribution Width CV 14.7 % (11.6-14.6); RBC Distribution Width SD 50.4 fl (35.1-43.9); Red Blood Count 3.52 M/mm3 (4.2-5.4); White Blood Count 7.7 K/mm3 (4.4-11.0)
[2022-09-18] MEDS: Lactated Ringers 1,000 ML 50 ML IV (08:24)
[2022-09-18] MEDS: Oxytocin 15 Units/NS 250ml 15 UNITS/250 ML IV.SOLN 2 UNITS IV (08:26)
[2022-09-18 08:53] LABS: Syphilis Antibodies Non-reactive
[2022-09-18] MEDS: LACTATED RINGERS 500 ML 999 ML IV (13:15)
[2022-09-18] MEDS: fentaNYL-bupivacaine (epidural) 100 ML BAG EPIDURAL (13:54)
--- NOTE | 2022-09-18 15:21 | OP.PCM_ITS ---
Assessment & Plan (1) Recurrent loss: COMMENT: 3 first trimester losses and 1 26 week loss. apl panel ordered/neg (2) MTHFR (methylene THF reductase) deficiency and homocystinuria: COMMENT: folate Baby ASA (3) Supervision of high risk , unspecified, unspecified trimester: COMMENT: [id number] RAJNI 09/30/22 PC ([place]) Spouse- Ag (4) : QUALIFIERS: Weeks of gestation: 37 weeks Qualified Code(s): Z3A.37 - 37 weeks gestation of COMMENT: GBS Negative, declined NIPT & carrier testing, nl anatomy (5) History of COVID-19: COMMENT: 01/30/22 + Covid, asa 81 mg daily, 32 & 36 week Growth US 32 week US NL- 50% growth (6) History of stillbirth: COMMENT: 26 weeks. dtr [place] wkly nts starting 28 weeks, discuss twice weekly as needed after 32 weeks. 07/31 nl growth 1790g 20% (7) Anemia affecting : COMMENT: iron given (8) Encounter for induction of labor: (9) Vaginal delivery: COMMENT: SM IAL 39 IOL Maternal Data Information RAJNI Calculator Estimated Delivery Date Method Current WG Current Estimate 09/23/22 Ultrasound #1 39w 2d Other Estimates 09/30/22 LMP (Certain) 38w 2d Vaginal Delivery Operative Information Date of Procedure: 09/18/22 Pre-Operative Diagnosis: see a/p diagnoses Post-Operative Diagnosis: same Surgery / Procedure Performed: Spontaneous Vaginal Delivery Type of Anesthesia: Epidural Special Medications: none Estimated Blood Loss: 200 Fluids Replaced: crystalloid Findings Description of Procedure: Patient began pushing and delivered the head in the RACHEL presentation. The head was delivered atraumatically. The anterior and posterior shoulders delivered without complication followed by the rest of the and the was placed on the maternal abdomen. Delayed cord clamping was employed for approximately 60 seconds. Cord was clamped and cut and gentle traction was applied to the cord and the placenta delivered spontaneously immediately following it was noted to be intact with three-vessel cord. The perineum and vagina were inspected and noted to have a second degree perineal laceration which was repaired in the usual fashion with 3-0 vicryl rapide.. EBL was 200 cc. Patient and infant tolerated delivery well. Amniotic Fluid Description: Clear Placental Delivery Description: Spontaneous Placenta Disposition: [facility] Cord Vessel Description: 3 Vessels Cord Entanglement: None Delayed Cord Clamping: Yes Post Vaginal Delivery Medications Given After Delivery: IV Pitocin Episiotomy Description: None Complication Complications: None Procedures Urinary/Genital [id number]: [id number] Vaginal Delivery [facility]
--- NOTE | 2022-09-18 15:22 | DCINST_ITS ---
Discharge Instructions Diet Discharge Diet: No restrictions Activity Discharge Activity: Return to Normal Activity, May Drive, May Shower and May Take a Tub Bath (in 4 weeks) May resume sexual activity in: 6-8 weeks (after seen by OB provider) Weight Bearing Status: Full weight bearing Lifting Restrictions: none Dressing / Incision Call your doctor if you observe: Fever of 101 or Higher, Inability to urinate, Using more than 1 pad per hour (for more than 2 hours in a row or more), Shortness of breath, Dizziness, Chest pain and - (headache not controlled with tylenol, change in vision) Follow Up Care When: in 6 weeks for visit, call the office to make the appointment. If you had elevated blood pressures call the office to be seen within 1 week. Test Results: Test results from this visit will be discussed in further detail at your follow- up appointment, if applicable. Discharge Plan Admission Admit Date/Time: 09/18/22 07:00 Attending Provider: Kimberly Loya Primary Care Provider: Tyrone Jackson Discharge Orders/Prescriptions Prescriptions: No Action PNV-DHA 27 mg iron-1 mg -300 mg capsule 1 cap PO DAILY famotidine 40 mg tablet 40 mg PO DAILY aspirin [Adult Aspirin Regimen] 81 mg tablet,delayed release (DR/EC) 81 mg PO DAILY ferrous sulfate [Iron (ferrous sulfate)] 325 mg (65 mg iron) Tablet 325 mg PO DAILY Referrals / Follow Up: Tyrone Jackson MD [Primary Care Provider] -
[2022-09-18] MEDS: Oxytocin 15 Units/NS 250ml 15 UNITS/250 ML IV.SOLN 334 UNITS IV (15:52)
[2022-09-18] MEDS: Acetaminophen 500 MG Tablet 1000 MG PO (17:17)
[2022-09-18] MEDS: Benzocaine/Lanolin/Aloe Vera 1 SPRAY EACH TOPICAL (17:21)
[2022-09-18] MEDS: Naproxen 500 MG Tablet PO (20:02)
[2022-09-19] VITALS (10 sets, daily range): BP systolic 100–116; BP diastolic 50–74; PULSE 72–95; RESP 14–18; TEMP 36.1–36.8; O2SAT 98–99
[2022-09-19] MEDS: Acetaminophen 500 MG Tablet 1000 MG PO ×3 (00:26→15:34)
--- NOTE | 2022-09-19 07:58 | PCM.PN.OB ---
Subjective Subjective Patient doing well without complaints. Tolerating PO. Ambulating and voiding without difficulty. Feeding well. Denies chest pain, shortness of breath, calf pain/swelling, fevers, chills, lightheadedness. Objective Data Objective Data Vital Signs: Vital Signs Temp Pulse Resp BP Pulse Ox O2 Del Method 97 F L 72 14 100/50 L 97 Room Air 09/19/22 03:37 09/19/22 03:37 09/19/22 03:37 09/19/22 03:37 09/18/22 13:59 09/19/22 03:37 Oxygen Delivery Method Room Air Weight: 168 lb 2 oz Body Mass Index (BMI) 31.7 Intake & Output: Intake and Output for Last 24 Hours 09/17/22 09/18/22 09/19/22 23:59 23:59 23:59 Intake Total 1530.97 / 1530.97 Output Total 600 / 600 Balance 930.97 / 930.97 Lab / Micro Data Attestation: I reviewed the patient's lab results. Result Diagrams: 09/18/22 08:05 Labs: Laboratory Results - last 24 hr 09/18/22 08:05: WBC 7.7, RBC 3.52 L, Hgb 10.6 L, Hct 32.6 L, MCV 92.6, MCH 30.1, MCHC 32.5, RDW Std Deviation 50.4 H, RDW Coeff of [place] 14.7 H, Plt Count 158, MPV 12.1 H, Immature Gran % (Auto) 0.800, Neut % (Auto) 69.2, Lymph % (Auto) 20.5, [place] % (Auto) 8.3, Eos % (Auto) 0.9, Baso % (Auto) 0.3, Absolute Neuts (auto) 5.3, Absolute Lymphs (auto) 1.57, Nucleated RBC % 0 09/18/22 08:05: Blood Type B POSITIVE, Antibody Screen NEGATIVE 09/18/22 08:05: Syphilis Total Ab Non-reactive ROS Constitutional Constitutional: Reports systems reviewed and no addt'l complaints, except as documented Cardiovascular Cardiovascular: Reports systems reviewed and no addt'l complaints, except as documented Respiratory/Chest Respiratory/Chest: Reports systems reviewed and no addt'l complaints, except as documented Gastrointestinal Gastrointestinal: Reports systems reviewed and no addt'l complaints, except as documented Genitourinary Genitourinary: Reports systems reviewed and no addt'l complaints, except as documented Musculoskeletal Musculoskeletal: Reports systems reviewed and no addt'l complaints, except as documented Psychiatric Psychiatric: Reports systems reviewed and no addt'l complaints, except as documented; Denies anxiety Physical Exam Const General Appearance: cooperative and comfortable Chest inspection of chest normal Resp normal respiratory effort and no retractions GI normal to inspection, nondistended, normoactive bowel sounds and soft to palpation Uterus Palpation: uterus fundus firm (1 below U) Extremity normal to inspection and full ROM Neuro moves all extremities Psych mental status grossly normal Assessment & Plan (1) Vaginal delivery: COMMENT: SM IAL 39 IOL PLAN: s/p PPD # 1 1. routine post delivery care 2. breast feeding- support given 3. rh positive 4. rubella immune 5. Discharge home
== END 2022-09-19 18:35 | disposition home or self-care (01) | DRG 806 ==
PROVIDERS: Admitting Provider Obstetrics & Gynecology; PCP Family Medicine; Visit Provider Obstetrics & Gynecology
DX: O26.23 Pregnancy care for patient with recurrent pregnancy loss, third trimester (principal); Z37.0 Single live birth; E72.12 Methylenetetrahydrofolate reductase deficiency; E72.11 Homocystinuria; O99.284 Endocrine, nutritional and metabolic diseases complicating childbirth; O70.1 Second degree perineal laceration during delivery; O99.02 Anemia complicating childbirth; Z3A.39 39 weeks gestation of pregnancy; Z79.82 Long term (current) use of aspirin; Z79.899 Other long term (current) drug therapy; Z86.16 Personal history of COVID-19
CPT/HCPCS: 59025; 59050; 85025; 86780; 86850; 86900; 86901; 99221; J7120; G0378

== ENCOUNTER → 2022-09-26 | Outpatient (CLI) | payer BC, SELFPAY | END | disposition home or self-care (01) | LOC: LABSPEC 10:08 | PROVIDERS: PCP Family Medicine; Referring Provider Nurse Practitioner Women's Health; Visit Provider Nurse Practitioner Women's Health | DX: R30.0 Dysuria (principal) | CPT/HCPCS: 87077; 87086; 87088; 87186 ==

== ENCOUNTER 2022-10-09 11:01 | Emergency (ER) | payer BC, SELFPAY ==
[2022-10-09 11:02] VITALS: BP 95/62; PULSE 70; RESP 16; TEMP 36.2; O2SAT 98; BMI 27.6
--- NOTE | 2022-10-09 11:17 | EX.ED.DYSGE1 ---
HPI History of Present Illness Chief Complaint: Fatigue Narrative Narrative: 27-year-old female here for fatigue. The patient states has been feeling this way since vaginal delivery 3 weeks ago. Does note she is being recently treated for UTI. No she is history of anemia she is on iron. She does complain of shortness of breath and dizziness as well. The patient denies recent surgery in the last 4 weeks or immobilization in the last 3 days, denies previous diagnosis of DVT or PE, hemoptysis, unilateral leg swelling or malignancy with treatment the last 6 months. No estrogen use noted. PFSH PFSH Home Medications famotidine 40 mg tablet 40 mg PO DAILY 02/15/22 [History Last Taken 09/18/22] multivitamin no.47-iron fum 27 mg-folate no.1 1 mg-dha 300 mg capsule (PNV-DHA) 1 cap PO DAILY 02/15/22 [History Last Taken 09/18/22] aspirin 81 mg tablet,delayed release (Adult Aspirin Regimen) 81 mg PO DAILY 04/19/22 [History Last Taken 09/18/22] ferrous sulfate 325 mg (65 mg iron) tablet (Iron (ferrous sulfate)) 325 mg PO DAILY 09/18/22 [History Last Taken 09/18/22] Allergy/AdvReac Type Severity Reaction Status Date / Time No Known Allergies Allergy Verified 10/09/22 11:08 Social History adopted: No household members: spouse housing: house current occupational status: employed 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 [employer] current occupational exposures/hazards: No pets and animals: Yes pets and animals: dog(s) history of recent travel: No sexually active: Yes Smoking Status: Never smoker alcohol intake: former details: socially on occasion substance use type: does not use well-balanced diet: about half the time caffeine: Yes Type: coffee Number of servings: 1 eating out: 1-3 times/week during the past year weight has: remained stable what type of physical activity do you participate in: walking frequency: 1-2 times per week duration: 15-30 minutes/day [place]/orthodox: [employer] seatbelt use: always do you feel safe at home: Yes additional social history: Spouse Ag Antonio- Jose G ROS ROS ED ROS Narrative Constitutional: Denies fever HEENT: Denies sore throat Neck: Denies neck pain Cardiovascular: Denies chest pain, syncope Respiratory: Denies shortness of breath GI: Denies nausea vomiting or abdominal pain : Denies changes in urinary habits Musculoskeletal: Denies muscle or joint pain Neurologic: Denies numbness weakness or loss of sensation Skin denies rash EXAM Physical Exam Narrative Exam Narrative: Nursing triage notes reviewed, Vital signs reviewed Constitutional: please see mdm HENT: MMM Eyes: Pupils equal round and reactive to light, Extraocular muscles intact Neck: No stridor, no JVD, full neck ROM Lungs: Clear to auscultation, No wheezing or rales. No increased work of breathing, no conversational dyspnea, no accessory muscle use, no nasal flaring. No respiratory distress noted Heart: Regular rate and rhythm, No murmurs, No rubs and No gallops, 2+ distal pulses (radial, femoral, posterior tibial) in all extremities Abdomen: Soft, there is no tenderness, rigidity, rebound or guarding, no obvious peritoneal signs, no palpable pulsatile abdominal masses, no auscultated abdominal bruit : No CVAT Extremities: No edema Neuro: No focal neurological deficits, cranial nerves II through XII intact, 5/5 strength in all extremities. Intact sensation to light touch in all extremities, 2+ reflexes bilateral patella dens. Normal gait. No ataxia. Skin: No rash or lesions noted Const Vital Signs: 10/09/22 11:02 10/09/22 11:09 10/09/22 11:19 Temperature 97.1 F L Temperature Source Temporal Pulse Rate 70 Respiratory Rate 16 18 Respiratory Effort Normal Non-Labored Respiratory Pattern Normal Blood Pressure 95/62 107/57 L Blood Pressure Mean 73 73 Pulse Ox 98 98 Oxygen Delivery Method Room Air Room Air 10/09/22 13:08 Temperature Temperature Source Pulse Rate 46 L Respiratory Rate 19 H Respiratory Effort Respiratory Pattern Blood Pressure Blood Pressure Mean Pulse Ox 99 Oxygen Delivery Method [place] [facility] [place] Medical decision making narrative: Chief Complaint: Fatigue, dizziness and shortness of breath External records reviewed: No recent advanced imaging of the chest I considered the following differential diagnosis: Dehydration, anemia, arrhythmia, UTI, PE I considered pulmonary embolism however do not think this is the most likely diagnosis given the patient's lack of risk factors. Wells score of 0. No indication for emergent CT at this time. I obtained a broad lab and imaging work-up to further elucidate the etiology the patient's complaint. Labs, imaging are unremarkable. No clear etiology of could explain the patient's complaint. She is appropriate for discharge home with close outpatient [facility] follow-up. Factors affecting care: Anemia, recent spontaneous vaginal delivery Social determinants of health: No drug use endorsed History obtained from others: None Shared decision making: I will have a discussion with the patient and or visitors regarding risk/benefits of further testing or admission. They will be made aware of of the risk/benefits inherent in this decision they will be given the opportunity to voice understanding. Consults: none Lab Data Attestation: I reviewed the patient's lab results. Lab results narrative: CBC without leukocytosis, severe anemia, no thrombocytopenia. Urinalysis without evidence of UTI BMP without evidence of significant electrolyte abnormalities, no anion gap, no acute kidney injury. LFTs show no evidence of hepatobiliary pathology. Troponin is negative, no evidence of myocardial ischemia Lipase is wnl indicating no pancreatic inflammation. Labs: Laboratory Results - last 24 hr 10/09/22 10/09/22 10/09/22 12:20 12:26 12:26 WBC 6.5 RBC 4.22 Hgb 12.6 Hct 38.2 MCV 90.5 MCH 29.9 MCHC 33.0 RDW Std Deviation 43.4 RDW Coeff of [place] 13.1 Plt Count 232 MPV 11.1 Immature Gran % (Auto) 0.200 Neut % (Auto) 55.5 Lymph % (Auto) 34.9 [place] % (Auto) 7.2 Eos % (Auto) 1.7 Baso % (Auto) 0.5 Absolute Neuts (auto) 3.6 Absolute Lymphs (auto) 2.27 Nucleated RBC % 0 Sodium 139 Potassium 4.1 Chloride 109 H Carbon Dioxide 27.0 Anion Gap 3 L BUN 12 Creatinine 0.81 Estim Creat Clear Calc 79.42 Est GFR (MDRD) Af Amer 110 Est GFR (MDRD) Non-Af 91 BUN/Creatinine Ratio 14.9 Glucose 76 Calcium 9.0 Total Bilirubin 0.30 Direct Bilirubin 0.09 AST 20 ALT 36 Alkaline Phosphatase 92 Troponin I High Sens < 3 L Total Protein 7.0 Albumin 3.5 Globulin 3.5 Lipase 152 Urine Color Yellow Urine Clarity Sl. Cloudy Urine pH 7.0 Ur Specific [place] 1.010 Urine Protein Negative Urine Glucose (UA) Normal Urine Ketones Negative Urine Occult Blood 25 H Urine Nitrite Negative Urine Bilirubin Negative Urine Urobilinogen Normal Ur Leukocyte Esterase 25 H Urine RBC 0-5 SEEN Urine WBC 0-5 SEEN Ur Squamous Epith Cells 0-5 SEEN Urine Bacteria 0 SEEN Urine Mucus 0 SEEN Radiography Chest X-Ray - ED: Read by ED Physician Diagnostic Testing: Clinical Impression(s) from Imaging Studies Chest X-Ray 10/09/22 12:30 IMPRESSION: Normal x-ray examination of the chest. Electronically Signed: Diogo Cleary MD at 12:40 EDT Reading Location ID and State: [facility] / ID , Service support , I have personally reviewed the patient's chest x-ray. Chest x-ray is unremarkable for pulmonary edema, pneumothorax, pneumonia or focal cardiopulmonary abnormality. EKG Initial EKG: Attestation: I personally reviewed and interpreted this EKG as follows: Comments: EKG with normal sinus rhythm, normal axis, no intervals, no STEMI Discharge Plan Triage Chief Complaint: Fatigue ED Provider: Mike Oneil Dx/Rx/DC Orders Instructions: ED Weakness (Uncertain Cause) Prescriptions: No Action PNV-DHA 27 mg iron-1 mg -300 mg capsule 1 cap PO DAILY famotidine 40 mg tablet 40 mg PO DAILY aspirin [Adult Aspirin Regimen] 81 mg tablet,delayed release (DR/EC) 81 mg PO DAILY ferrous sulfate [Iron (ferrous sulfate)] 325 mg (65 mg iron) Tablet 325 mg PO DAILY Stand Alone Forms: ED Work / School Excuse Primary Care Provider: Tyrone Jackson Referrals: Tyrone Jackson MD [Primary Care Provider] - Disposition Disposition: Home, Self Care
[2022-10-09 11:19] VITALS: BP 107/57; RESP 18; O2SAT 98
[2022-10-09] MEDS: 0.9% Normal Saline 1,000 ML 1000 ML IV (12:27)
--- NOTE | 2022-10-09 12:30 | RAD_ITS ---
STUDY: X-RAY CHEST REASON FOR EXAM: Female, 27 years old. Fatigue TECHNIQUE: Single AP portable view of the chest. COMPARISON: None. FINDINGS: EKG leads overlie the chest The lungs are clear and expanded. There is no demonstrated pleural abnormality. Normal size heart. Normal mediastinum and frances. Normal visualized pulmonary arteries. Normal visualized aortic arch and descending thoracic aorta. Normal visualized thoracic spine. Normal visualized ribs, clavicles, and shoulders. There is no demonstrated abnormality of the visualized soft tissue structures of the upper abdomen. RAD/Chest 1 View (Portable) IMPRESSION: Normal x-ray examination of the chest. Electronically Signed: Diogo Cleary MD at 12:40 EDT ,
[2022-10-09 12:32] LABS: Bacteria 0 SEEN /hpf (None Seen); Mucous, Urine 0 SEEN /hpf (<or=2+)
[2022-10-09 12:34] LABS: Absolute Lymphocyte Count 2.27 X10^3/uL (0.83-4.51); Absolute Neutrophil Count 3.6 X10^3/uL (2.0-7.7); Basophil# 0.03 X10^3/uL; Basophil% 0.5 % (0-1); Eosinophil# 0.11 X10^3/uL; Eosinophils% 1.7 % (0-5); Hematocrit 38.2 % (37-47); Hemoglobin 12.6 g/dL (12.0-15.0); Lymphocyte # 2.27 X10^3/ul (0.83-4.51); Lymphocyte % 34.9 % (19-41); Mean Corpuscular Hgb 29.9 pg (27.0-32.0); Mean Corpuscular Volume 90.5 fL (81-99); Mean Platelet Vol. 11.1 fl (6.2-12.0); Monocyte# 0.47 X10^3/uL; Monocyte% 7.2 % (0-10); NRBC Flagged by Analyzer 0 % (0-5); Neutrophil # 3.62 X10^3/uL (2.7-7.7); Neutrophil % 55.5 % (47-70); Platelet Count 232 K/mm3 (150-450); RBC Distribution Width CV 13.1 % (11.6-14.6); RBC Distribution Width SD 43.4 fl (35.1-43.9); Red Blood Count 4.22 M/mm3 (4.2-5.4); White Blood Count 6.5 K/mm3 (4.4-11.0)
[2022-10-09 12:34] LABS: Color, Urine Yellow (Yellow); Glucose, Dipstick Normal (Normal); Ketone-Dipstick Negative (Negative); Leukocyte Esterase-Dipstick 25 /ul (Negative); Nitrite-Dipstick Negative (Negative); Occult Blood-Urine 25 /ul (Negative); Protein-Dipstick Negative (Negative); Urine Bilirubin Dipstick Negative (Negative); Urine Clarity Sl. Cloudy (Clear); Urine Urobilinogen Normal (Normal)
[2022-10-09 12:44] LABS: Red Blood Cells-Urine 0-5 SEEN /hpf (0-5); Squamous Epithelial Cells - UA 0-5 SEEN /hpf (5-10); White Blood Cells 0-5 SEEN /hpf (0-5)
[2022-10-09 12:54] LABS: AST(SGOT) 20 U/L (15-37); Alanine Aminotransfer ALT/SGPT 36 U/L (13-56); Albumin, Serum 3.5 g/dL (3.2-5.0); Alkaline Phosphatase 92 U/L (45-117); Anion Gap 3 (5-15); BUN 12 mg/dL (7-18); BUN/Creat Ratio 14.9 RATIO (10-20); Bilirubin, Direct 0.09 mg/dL (0.00-0.30); Chloride 109 mmol/L (98-107); Creatinine, Serum 0.81 mg/dL (0.55-1.02); EST Glomerular Filtration Rate 91 mL/min (>60); Est Glom Filt Rate - Afr Amer 110 mL/min (>60); Estimated Creatinine Clearance 79.42 ml/min; Globulin 3.5 g/dL (2.2-4.2); Glucose 76 mg/dL (74-106); Lipase 152 U/L (73-393); Potassium 4.1 mmol/L (3.5-5.1); Sodium Level 139 mmol/L (136-145); Troponin-I HS < 3 pg/mL (3.0-54.0)
[2022-10-09 13:08] VITALS: PULSE 46; RESP 19; O2SAT 99
[2022-10-09 14:19] VITALS: BP 114/74; PULSE 51; RESP 15; O2SAT 97
== END 2022-10-09 14:23 | disposition home or self-care (01) ==
PROVIDERS: Emergency Provider Emergency Medicine; PCP Family Medicine; Visit Provider Emergency Medicine
DX: R53.1 Weakness (principal); Z79.82 Long term (current) use of aspirin
CPT/HCPCS: 71045; 80048; 80076; 81001; 83690; 84484; 85025; 87428; 93005; 96360; 99283; J7030; A4216

== ENCOUNTER → 2022-11-03 | Outpatient (CLI) | payer BC, SELFPAY ==
[2022-11-03 11:56] LABS: Absolute Lymphocyte Count 2.18 X10^3/uL (0.83-4.51); Absolute Neutrophil Count 4.7 X10^3/uL (2.0-7.7); Basophil# 0.02 X10^3/uL; Basophil% 0.3 % (0-1); Eosinophil# 0.15 X10^3/uL; Hematocrit 41.4 % (37-47); Hemoglobin 13.2 g/dL (12.0-15.0); Lymphocyte # 2.18 X10^3/ul (0.83-4.51); Lymphocyte % 28.7 % (19-41); Mean Corp Hgb Conc 31.9 g/dL (32-36); Mean Corpuscular Hgb 28.7 pg (27.0-32.0); Monocyte# 0.51 X10^3/uL; Monocyte% 6.7 % (0-10); NRBC Flagged by Analyzer 0 % (0-5); Neutrophil % 61.9 % (47-70); Platelet Count 289 K/mm3 (150-450); RBC Distribution Width CV 12.9 % (11.6-14.6); RBC Distribution Width SD 42.5 fl (35.1-43.9); White Blood Count 7.6 K/mm3 (4.4-11.0)
[2022-11-03 12:21] LABS: Vitamin D,25 Hydroxy 27.6 ng/mL
[2022-11-03 12:29] LABS: AST(SGOT) 24 U/L (15-37); Alanine Aminotransfer ALT/SGPT 51 U/L (13-56); Alkaline Phosphatase 90 U/L (45-117); Anion Gap 9 (5-15); BUN 14 mg/dL (7-18); BUN/Creat Ratio 18.1 RATIO (10-20); Chloride 109 mmol/L (98-107); Creatinine, Serum 0.77 mg/dL (0.55-1.02); EST Glomerular Filtration Rate 95 mL/min (>60); Est Glom Filt Rate - Afr Amer 115 mL/min (>60); Globulin 3.9 g/dL (2.2-4.2); Glucose 87 mg/dL (74-106); Potassium 4.3 mmol/L (3.5-5.1); Protein, Total 7.9 g/dL (6.4-8.2); Sodium Level 141 mmol/L (136-145); T4 Free Direct 0.91 ng/dL (0.76-1.46)
== END | disposition home or self-care (01) ==
LOC: PAVLAB 11:40
PROVIDERS: PCP Family Medicine; Referring Provider Obstetrics & Gynecology; Visit Provider Obstetrics & Gynecology
DX: O80 Encounter for full-term uncomplicated delivery (principal); O99.63 Diseases of the digestive system complicating the puerperium; O99.893 Other specified diseases and conditions complicating puerperium; K80.20 Calculus of gallbladder without cholecystitis without obstruction; R53.83 Other fatigue; R42 Dizziness and giddiness; Z3A.00 Weeks of gestation of pregnancy not specified
CPT/HCPCS: 36415; 80053; 82306; 84439; 84443; 85025

== ENCOUNTER → 2023-02-22 | Outpatient (CLI) | payer BC, SELFPAY ==
[2023-02-26 08:07] LABS: Chlamydia By Nucleic Acid AMP Negative (Negative); Gonococcus By Nucleic Acid AMP Negative (Negative)
== END | disposition home or self-care (01) ==
LOC: LABSPEC 15:36
PROVIDERS: PCP Family Medicine; Referring Provider Obstetrics & Gynecology; Visit Provider Obstetrics & Gynecology
DX: Z34.90 Encounter for supervision of normal pregnancy, unspecified, unspecified trimester (principal)
CPT/HCPCS: 87077; 87086; 87088; 87491; 87591

== ENCOUNTER → 2023-05-01 | Outpatient (CLI) | payer BC, SELFPAY ==
[2023-05-01 11:05] LABS: Absolute Lymphocyte Count 1.64 X10^3/uL (0.83-4.51); Absolute Neutrophil Count 8.3 X10^3/uL (2.0-7.7); Basophil# 0.04 X10^3/uL; Basophil% 0.4 % (0-1); Eosinophil# 0.14 X10^3/uL; Eosinophils% 1.3 % (0-5); Hematocrit 36.2 % (37-47); Lymphocyte # 1.64 X10^3/ul (0.83-4.51); Lymphocyte % 15.3 % (19-41); Mean Corp Hgb Conc 33.1 g/dL (32-36); Mean Corpuscular Hgb 29.3 pg (27.0-32.0); Mean Corpuscular Volume 88.5 fL (81-99); Mean Platelet Vol. 10.8 fl (6.2-12.0); Monocyte# 0.61 X10^3/uL; Monocyte% 5.7 % (0-10); NRBC Flagged by Analyzer 0 % (0-5); Neutrophil # 8.25 X10^3/uL (2.7-7.7); Neutrophil % 76.7 % (47-70); Platelet Count 250 K/mm3 (150-450); RBC Distribution Width CV 13.3 % (11.6-14.6); RBC Distribution Width SD 43.2 fl (35.1-43.9); Red Blood Count 4.09 M/mm3 (4.2-5.4); White Blood Count 10.7 K/mm3 (4.4-11.0)
[2023-05-01 12:42] LABS: HIV - WCH Non-Reactive (Nonreactive); Hepatitis B Surface Antigen Non-Reactive (Nonreactive); Hepatitis C Antibody Non-Reactive (Nonreactive); Rubella IgG Reactive (Nonreactive); Syphilis Antibodies Non-reactive
== END | disposition home or self-care (01) ==
PROVIDERS: PCP Family Medicine; Referring Provider Obstetrics & Gynecology; Visit Provider Obstetrics & Gynecology
DX: Z34.90 Encounter for supervision of normal pregnancy, unspecified, unspecified trimester (principal)
CPT/HCPCS: 36415; 85025; 86703; 86762; 86780; 86803; 86850; 86900; 86901; 87340

== ENCOUNTER → 2023-07-10 | Outpatient (CLI) | payer BC, SELFPAY ==
[2023-07-10 11:26] LABS: Absolute Lymphocyte Count 1.64 X10^3/uL (0.83-4.51); Absolute Neutrophil Count 7.1 X10^3/uL (2.0-7.7); Basophil# 0.03 X10^3/uL; Basophil% 0.3 % (0-1); Eosinophil# 0.15 X10^3/uL; Eosinophils% 1.5 % (0-5); Hematocrit 32.1 % (37-47); Hemoglobin 10.4 g/dL (12.0-15.0); Lymphocyte # 1.64 X10^3/ul (0.83-4.51); Lymphocyte % 16.8 % (19-41); Mean Corp Hgb Conc 32.4 g/dL (32-36); Mean Corpuscular Hgb 29.6 pg (27.0-32.0); Mean Corpuscular Volume 91.5 fL (81-99); Mean Platelet Vol. 10.5 fl (6.2-12.0); Monocyte# 0.75 X10^3/uL; Monocyte% 7.7 % (0-10); NRBC Flagged by Analyzer 0 % (0-5); Neutrophil # 7.13 X10^3/uL (2.7-7.7); Neutrophil % 73.1 % (47-70); Platelet Count 227 K/mm3 (150-450); RBC Distribution Width CV 13.1 % (11.6-14.6); RBC Distribution Width SD 43.6 fl (35.1-43.9); Red Blood Count 3.51 M/mm3 (4.2-5.4); White Blood Count 9.8 K/mm3 (4.4-11.0)
[2023-07-10 11:54] LABS: Glucose Challenge Gest 1H 50g 106 mg/dL (70-140)
--- OUTSIDE RECORDS SUMMARY | 2023-07-10 11:57 | XMS RPT_ITS | CCD ---
Author Name Unknown Address [address] [place] [address] Organization [facility] Care Team Providers Care Manager Business Systems Name Role Phone REFERRING, PHY WO ID Unavailable Unavailable ELLEN MIRZA Unavailable Unavailable REFERRING, PHY WO ID Unavailable Unavailable TYRONE WILLAMS MD Primary Care Physician Tyrone Willams MD Primary Care Provider Tamera Friedman CGC Unavailable Unavailab Tyrone Aguero MD Primary Care Provider ROCK RENEE, SHAHEED Attending TYRONE Murray MD Primary Care Unavailable ROCK RENEE, SHAHEED Attending TYRONE Murray MD Primary Care Unavailable ROCK RENEE, SHAHEED Attending UnavailTYRONE Lozoya MD Primary Care Unavailable TYRONE WILLAMS MD Attending Unavailable TYRONE WILLAMS MD Primary Care Unavailable TYRONE WILLAMS MD Attending Unavailable TYRONE WILLAMS MD Primary Care Unavailable JESSE MERCADO Attending Unavailable TORRIE STEWART Referring Unavailable TYRONE WILLAMS Primary Care Unavailable YANA PATTERSON Attending Unavailable ELISABETH SOLOMON Referring UnavailTRYONE Lozoya Primary Care Unavailable Medications Current Medications Medication Drug Class(es) Dates Sig (Normalized) Sig (Original) Ascorbic Acid (1 source) Vitamin C Start: 06-07-2022 Vitamin C qDay, 0 Refill(s) Start Date: 06/07/22 Status: Ordered Azithromycin 5 Day Dose Pack 250 mg oral tablet (1 source) Start: 06-09-2022 End: 06-14-2022 Azithromycin 5 Day Dose Pack 250 mg oral tablet Take two (2) tablets day 1-then one (1) tablet, Oral, Daily, X 5 day(s), # 6 tab(s), 0 Refill(s), 06/14/22 9:04:00 EST, Pharmacy: [facility], 157.3, cm, 06/07/22 15:34:00 EST, Height, 67.8 Start Date: 06/09/22 Stop Date: 06/14/22 Status: Ordered benzonatate 100 mg oral capsule (1 source) Non-narcotic Antitussive Start: 01-15-2022 End: 01-25-2022 take 1 capsule by mouth every eight hours as needed for cough and cough benzonatate (TESSALON PERLES) 100 mg capsule Indications: Cough, unspecified type Take 1 capsule by mouth three times daily as needed for cough for up to 10 days. Pleas check with your EMERGENCY MEDICINE NURSE PRACTITIONER if ok to take 30 capsule 0 01/15/2022 01/25/2022 Active Completed/Discontinued Medications Medication Drug Class(es) Dates Sig (Normalized) Sig (Original) aspirin 81 mg delayed release oral tablet (5 sources) Platelet Aggregation Inhibitor, Nonsteroidal Anti-inflammatory Drug Start: 07-05-2020 aspirin, enteric coated (ASPIRIN, ENTERIC COATED) 81 mg EC tablet 81 mg once daily. 0 07/05/2020 Active Problems Active Problems Problem Classification Problem Date Documented Date Episodic/Chronic Abdominal pain (2 sources) Unspecified abdominal pain; Translations: [Unspecified abdominal pain] Onset: 12-07-2022 Episodic Contraceptive and procreative management (1 source) Patient encounter status; Translations: [Encounter for other general counseling and advice on procreation] Onset: 09-05-2021 09-05-2021 Episodic Other female genital disorders (1 source) History of recurrent miscarriage - not ; Translations: [Recurrent loss] Onset: 08-31-2021 08-31-2021 Episodic Other lower respiratory disease (4 sources) Dyspnea 03-13-2021 Episodic Other lower respiratory disease (2 sources) Cough; Translations: [Cough, unspecified type] Episodic Other nutritional; endocrine; and metabolic disorders (4 sources) 5,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 Residual codes; unclassified (2 sources) History of intrauterine ; Translations: [Personal history of other complications of , childbirth and the puerperium] Onset: 08-31-2021 Episodic Residual codes; unclassified (1 source) Hereditary disorder of endocrine system; 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 other disease] Onset: 08-31-2021 09-05-2021 Episodic Residual codes; unclassified (1 source) H/O: 06-07-2022 Episodic Unclassified (1 source) Cough, unspecified; Translations: [Cough, unspecified] Onset: 06-07-2022 Past or Other Problems Problem Classification Problem Date Documented Da te Episodic/Chronic Genitourinary symptoms and ill-defined conditions (2 sources) Dysuria; Translations: [DYSURIA] Onset: 12-28-2016 Episodic Nonspecific chest pain (6 sources) Chest pain; Translations: [Chest pain, unspecified] Onset: 06-07-2022 03-13-2021 Episodic Other complications of (2 sources) Supervision of with other poor reproductive or obstetric history, third trimester; Translations: [Supervision of with other poor reproductive or obstetric history, third trimester] Onset: 06-07-2022 Episodic Other upper respiratory infections (3 sources) Pharyngitis; Translations: [Acute pharyngitis, unspecified] Onset: 06-07-2022 06-07-2022 Episodic Unclassified (1 source) Cough, unspecified; Translations: [Cough, unspecified] Onset: 06-07-2022 Results Test Name Value Interpretation Reference Range Facil ity Vital Signs Date Time Vital Sign Value Performing Clinician Faci lity 01-15-2022 11:26-0400 Body temperature 97.81 [degF] Diego Brandon MD Work Phone: [facility] 01-15-2022 11:26-0400 Body weight 65.77 kg Diego Brandon MD Work Phone: [facility] 01-15-2022 11:26-0400 Diastolic blood pressure 86 mm[Hg] Diego Brandon MD Work Phone: [facility] 01-15-2022 11:26-0400 Heart rate 87 /min Diego Brandon MD Work Phone: [facility] 01-15-2022 11:26-0400 Respiratory rate 16 /min Diego Brandon MD Work Phone: [facility] 01-15-2022 11:26-0400 SaO2% (BldA) [Mass fraction] 99 % Diego Brandon MD Work Phone: [facility] 01-15-2022 11:26-0400 Systolic blood pressure 105 mm[Hg] Diego Brandon MD Work Phone: [facility] Encounters Encounter Date Encounter Type Care Provider Facility Start: 06-14-2023 End: 06-14-2023 ambulatory YANA PATTERSON [facility] Start: 05-29-2023 End: 05-29-2023 ambulatory JESSE BRICEÑOE [facility] Start: 12-27-2022 ambulatory TYRONE WILLAMS MD Faci lity:B Start: 12-07-2022 ambulatory [facility] ADULT LITERACY TEACHER-INCLUSION SPECIALIST Fa cility:B Start: 12-07-2022 End: 12-12-2022 ambulatory [facility] ADULT LITERACY TEACHER-INCLUSION SPECIALIST Facility:B Start: 12-07-2022 End: 12-08-2022 ambulatory [facility] ADULT LITERACY TEACHER-INCLUSION SPECIALIST Facility:B Start: 06-07-2022 End: 06-12-2022 ambulatory TYRONE WILLAMS MD Facility:B Start: 06-07-2022 End: 06-11-2022 Outreach Lab TYRONE WILLAMS MD [facility] Start: 01-15-2022 End: 01-15-2022 Office outpatient new 30 minutes Diego Brandon MD Work Phone: [facility] Procedures Date Procedure Procedure Detail Performing Clinician Start: 01-15-2022 Adult depression scr eening assessment Diego Brandon MD Work Phone: Tonsillectomy [facility] ESTRADA ON ADULT LITERACY TEACHER-CNM Tooth extraction [facility]OLO BLEVINS MPSON ADULT LITERACY TEACHER-CNM Plan of Treatment Date Care Activity Detail Author Start: 01-15-2023 Adult depression screening assessment DEPRESSION SCREENING [facility] Start: 03-02-2022 Influenza vaccination INFLUENZA (#1) [facility] Start: 03-02-2021 FLU (#1) FLU (#1) [facility] Start: 02-06-2017 Microscopic observat ion [Identifier] in Cervix by Cyto stain Pap Smear [facility] Start: 02-06-2017 PAP TESTING PAP TESTING [facility] Start: 02-06-2015 Urine microalbumin profile DTAP,TDAP,TD (1 - Tdap) [facility] Start: 02-06-2014 HEPATITIS C SCREENING HEPATITIS C SC REENING [facility] Start: 02-06-2014 HIV SCREENING HIV SCREENING [facility] Start: 2012 MenB (1 of 2 - MenB 2-Dose Series) MenB (1 of 2 - MenB 2-Dose Series) [facility] Start: 02-06-2010 PEDS TO ADULT TRANSI TION ANNUAL ASSESSMENT PEDS TO ADULT TRANSITION ANNUAL ASSESSMENT [facility] Start: 2008 PEDS TO ADULT TRANSI TION INITIAL DISCUSSION PEDS TO ADULT TRANSITION INITIAL DISCUSSION [facility] Start: 02-06-2007 HPV (1 - 2-dose series) HPV (1 - 2-dose series) [facility] Start: 02-06-2007 HPV VACCINE (1 - 2-d ose series) HPV VACCINE (1 - 2-dose series) [facility] Start: 02-06-2003 Tetanus Diphtheria a nd Pertussis Vaccines (1 - Tdap) Tetanus Diphtheria and Pertussis Vaccines (1 - Tdap) [facility] Start: 02-06-2001 COVID-19 (1) COVID-19 (1) [facility] Start: 02-06-1997 MMR (1 of 1 - Standa rd series) MMR (1 of 1 - Standard series) [facility] Start: 02-06-1997 Varicella (1 of 2 - 2-dose childhood series) Varicella (1 of 2 - 2-dose childhood series) [facility] Start: 1996 COVID-19 VACCINE (#1) COVID-19 VACCI NE (#1) [facility] End: 10-08-2021 Homocysteine, total plasma [facility] Work Phone: Payers Date Payer Category Payer Self-pay 2022 Unknown [id number] 2021 Unknown ANTHEM [employer]THSTER[employer]ING SP[employer]ER BS PPO [id number] 2021-Present [address] [place] [address] [id number] 2021 Unknown ANTHEM MARCELINA ACCE SS PPO [id number] 2021-Present [phone] [address] [place] [address] PPO [id number] 1996 Unknown [id number] 1996 Unknown [id number] 1996 Unknown [id number] 1996 Unknown [id number] 1996 Unknown [id number] 1996 Unknown [id number] 1996 Unknown [id number] 1996 Unknown [id number] Social History Date Type Detail Facility Start: 03-25-2020 End: 01-15-2022 Never smoked tobacco (finding) [facility] Sex Assigned At Female [facility] Start: 08-31-2021 End: 01-15-2022 Tobacco use and exposure Smokeless tobacco non-user [facility] Start: 09-05-2021 End: 01-15-2022 Alcohol intake Current drinker of alcohol (finding) [facility] Start: 08-31-2021 History SDOH Alcohol Comment occasional [facility] Start: 1996 Sex Assigned At Not on file [facility] Start: 09-28-2021 End: 01-15-2022 Exposure to SARS-CoV-2 (event) Not sure [facility] Clinical Note 12-08-2022 Note Date & Type Note Facility 12-08-2022 Note . MICRO - Microbiology PROCEDURE: Urine Culture [*1] SOURCE: Urine, Clean Catch BODY SITE: COLLECTED DATE/TIME: 12/07/2022 13:31 EDT RECEIVED DATE/TIME: 12/07/2022 19:09 EDT START DATE/TIME: 12/07/2022 19:09 EDT FREE TEXT SOURCE: FINAL REPORTS Final Report [] Verified Date/Time/Personnel: 12/08/2022 14:16 EDT >100,000 cfu/ml Group B Beta Hemolytic Strep (Strep agalactiae) Sensitivity testing is not recommended for one of the following reasons: 1. Established susceptibility patterns are available or 2. Interpretative criteria are not available. Performing Locations *1: This test was performed at: [facility], [address] [place] [address], [address] [place] [address] (ID) SARS-CoV-2 (COVID-19) RNA SANDRA+probe Ql (Nph) 06-08-2022 Note Date & Type Note Facility 06-08-2022 SARS-CoV-2 (COVID -19) RNA SANDRA+probe Ql (Nph) Negative *NA* (06/08/22 5:08 PM) AO Auto Urine SS Progress note 01-15-2022 Note Date & Type Note Facility 01-15-2022 Note HNO ID: [id number] Author: Diego Brandon MD Service: ? Author Type: Physician Type: Progress Notes Filed: 01/15/2022 12:17 PM Note Text: Cruz Alvarez is a 26 year old FEMALE who presents with Cough (3 weeks) dry couigh for 3 weeks No other sympmtoms History reviewed. No pertinent past medical history. There is no problem list on file for this patient. Current Outpatient Medications Medication Sig Dispense Refill - vit/iron fum/folic ac ( 1 + 1 ORAL) once daily. - aspirin, enteric coated (ASPIRIN, ENTERIC COATED) 81 mg EC tablet 81 mg once daily. - famotidine (PEPCID) 40 mg tablet Take by mouth once daily. No current facility-administered medications for this visit. Social History Tobacco Use - Smoking status: Never Smoker - Smokeless tobacco: Never Used Vaping Use - Vaping Use: Never used Substance Use Topics - Alcohol use: Yes - Drug use: Never Alcohol Use: Yes Tobacco Use: Never History reviewed. No pertinent family history. Review of Systems Respiratory: Positive for cough. All other systems reviewed and are negative. BP 105/86 Pulse 87 Temp 97.8 Resp 16 Wt 145 lb (65.8kg) SpO2 99% LMP 12/24/2021 Physical Exam Vitals reviewed. Constitutional: Appearance: Normal appearance. HENT: Nose: Nose normal. No congestion or rhinorrhea. Mouth/Throat: Mouth: Mucous membranes are moist. Pharynx: Oropharynx is clear. No posterior oropharyngeal erythema. Cardiovascular: Rate and Rhythm: Normal rate and regular rhythm. Heart sounds: Normal heart sounds. Pulmonary: Breath sounds: Normal breath sounds. No wheezing, rhonchi or rales. Neurological: Mental Status: She is alert. ASSESSMENT/PLAN: 1. Cough, unspecified type - ICD9: 786.2, ICD10: R05.9 - BENZONATATE 100 MG CAPSULE No antibiotic is needed right now F/U PCP for further care Check with your EMERGENCY MEDICINE NURSE PRACTITIONER if Ok to take this med Diego Brandon MD [facility] Instructions 01-15-2022 Patient Instructions Note Date & Type Note Facility 01-15-2022 Instructions Diego Brandon MD - 01/15/2022 12:15 PM EDT No antibiotic is needed right now F/U PCP for further care Check with your EMERGENCY MEDICINE NURSE PRACTITIONER if Ok to take this med Explained documented in this encounter [facility] History of Present illness Narrative 01-15-2022 Diego Brandon MD - 01/15/2022 12:10 PM EDT Note Date & Type Note Facility 01-15-2022 History of Presen t illness Narrative Cruz Alvarez is a 26 year old FEMALE who presents with Cough (3 weeks) dry couigh for 3 weeks No other sympmtoms History reviewed. No pertinent past medical history. There is no problem list on file for this patient. Current Outpatient Medications Medication Sig Dispense Refill vit/iron fum/folic ac ( 1 + 1 ORAL) once daily. aspirin, enteric coated (ASPIRIN, ENTERIC COATED) 81 mg EC tablet 81 mg once daily. famotidine (PEPCID) 40 mg tablet Take by mouth once daily. No current facility-administered medications for this visit. Social History Tobacco Use Smoking status: Never Smoker Smokeless tobacco: Never Used Vaping Use Vaping Use: Never used Substance Use Topics Alcohol use: Yes Drug use: Never Alcohol Use: Yes Tobacco Use: Never History reviewed. No pertinent family history. Review of Systems Respiratory: Positive for cough. All other systems reviewed and are negative. BP 105/86 Pulse 87 Temp 97.8 Resp 16 Wt 145 lb (65.8kg) SpO2 99% LMP 12/24/2021 Physical Exam Vitals reviewed. Constitutional: Appearance: Normal appearance. HENT: Nose: Nose normal. No congestion or rhinorrhea. Mouth/Throat: Mouth: Mucous membranes are moist. Pharynx: Oropharynx is clear. No posterior oropharyngeal erythema. Cardiovascular: Rate and Rhythm: Normal rate and regular rhythm. Heart sounds: Normal heart sounds. Pulmonary: Breath sounds: Normal breath sounds. No wheezing, rhonchi or rales. Neurological: Mental Status: She is alert. ASSESSMENT/PLAN: 1. Cough, unspecified type - ICD9: 786.2, ICD10: R05.9 - BENZONATATE 100 MG CAPSULE No antibiotic is needed right now F/U PCP for further care Check with your EMERGENCY MEDICINE NURSE PRACTITIONER if Ok to take this med Diego Brandon MD documented in this encounter [facility] Evaluation + Plan note Note Date & Type Note Facility Evaluation + Plan note No data available for this section [facility] Evaluation note Note Date & Type Note Facility documented in this encounter [facility] Evaluation note Note Date & Type Note Facility documented in this encounter [facility] Discharge instructions Note Date & Type Note Facility Hospital Discharge instructions No data available for this section [facility] Progress note Note Date & Type Note Facility Progress note No data available for this section [facility] Summary Purpose Family History No Family History Records FoundNo Family History Records FoundNo Family History Records FoundNo Family History Records FoundNo Family History Records Found Advance Directives No Advanced Directives Records FoundDocuments on File Type Date 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 Power of Whitewasher Additional Source Comments INFORMATION SOURCE (unrecogn ized section and content) DATE CREATED AUTHOR AUTHOR'S ORGANIZ ATION 09/30/2020 [employer] DATE CREATED AUTHOR AUTHOR'S ORGANIZ ATION 01/19/2022 [facility] DATE CREATED AUTHOR AUTHOR'S ORGANIZ ATION 12/28/2022 [facility] ([place]) DATE CREATED AUTHOR AUTHOR'S ORGANIZ ATION 06/17/2023 [facility] Care Teams (unrecognized sec tion and content) Manager Business Systems Relationship Specialty Start Date End Date Tyrone Willams MD [address] [place] [address] PCP - General Family Practice 01/15/22 Source Comments (unrecognize d section and content) In the event this informatio n is protected by the Federal Confidentiality of Alcohol and Drug Abuse Patient Records regulations: The Federal rules restrict any use of the information to criminally investigate or prosecute any alcohol or drug abuse patient.[facility] Reason for Visit (unrecogniz ed section and content) Care Team (unrecognized sect ion and content) Care Team Personnel Name: TYRONE WILLAMS MD Position: P4 Physician - Primary Care Member Role: Primary Care Physician Address: Address: [address] [place] [address] Juan Garcia [place], [place] [address] Care Team Related Persons Name: JESSIKA PERALES Address: [address] [place], [place] [id number] Name: AMANDA PERALES Name: AMANDA PERALES Name: AMANDA PERALES FOR RECORDS PERTAINING TO PATIENTS WHO ARE OR HAVE BEEN ENROLLED IN A CHEMICAL DEPENDENCY/SUBSTANCEABUSE PROGRAM, SOME INFORMATION MAY BE OMITTED. This clinical summary was aggregated from multiple sources. Caution should be exercised in using it in the provision of clinical care. This summary normalizes information from multiple sources, and as a consequence, information in this document may materially change the coding, format and clinical context of patient data. In addition, data may be omitted in some cases. CLINICAL DECISIONS SHOULD BE BASED ON THE PRIMARY CLINICAL RECORDS. [employer] provides no warranty or guarantee of the accuracy or completeness of information in this document.
[2023-07-10 14:07] LABS: HIV - WCH Non-Reactive (Nonreactive); Syphilis Antibodies Non-reactive
== END | disposition home or self-care (01) ==
LOC: PAVLAB 10:59
PROVIDERS: PCP Family Medicine; Referring Provider Obstetrics & Gynecology; Visit Provider Obstetrics & Gynecology
DX: O09.90 Supervision of high risk pregnancy, unspecified, unspecified trimester (principal); Z13.1 Encounter for screening for diabetes mellitus; Z3A.00 Weeks of gestation of pregnancy not specified
CPT/HCPCS: 36415; 82950; 85025; 86703; 86780

== ENCOUNTER → 2023-08-07 | Outpatient (CLI) | payer BC, SELFPAY | END | disposition home or self-care (01) | LOC: LABSPEC 12:44 | PROVIDERS: PCP Family Medicine; Referring Provider Advanced Practice Midwife; Visit Provider Advanced Practice Midwife | DX: R30.0 Dysuria (principal) | CPT/HCPCS: 87077; 87086; 87088; 87186 ==

== ENCOUNTER 2023-08-23 12:29 | Outpatient (CLI) | payer BC, SELFPAY ==
[2023-08-23] VITALS (7 sets, daily range): BP systolic 109–117; BP diastolic 59–64; PULSE 75–98; TEMP 37–37.5; O2SAT 97; BMI 30.6
--- OUTSIDE RECORDS SUMMARY | 2023-08-23 12:55 | XMS RPT_ITS | CCD ---
Author Name Unknown Address [address] [place] [address] Organization [facility] Care Team Providers Care Manager Meat Name Role Phone REFERRING, PHY WO ID [...] Care Unavailable TYRONE WILLAMS Primary Care Unavailable JESSE MERCADO Attending Unavailable [...] tab(s), 0 Refill(s), 06/14/22 9:04:00 EST, Pharmacy: [facility], 157.3, cm, 06/07/22 15:34:00 EST, Height, [...] to 10 days. Pleas check with your CLOTH GRADER if ok to take 30 capsule 0 [...] 97.81 [degF] Diego Brandon MD Work Phone: [facility] 01-15-2022 11:26-040 Body weight 65.77 kg Diego Brandon MD Work Phone: [facility] 01-15-2022 11:26-040 Diastolic blood pressure 86 mm[Hg] Diego Brandon MD Work Phone: [facility] 01-15-2022 11:26-040 Heart rate 87 /min Diego Brandon MD Work Phone: [facility] 01-15-2022 11:26-0400 Respiratory rate 16 /min Diego Brandon MD Work Phone: [facility] 01-15-2022 11:26-0400 SaO2% (BldA) [Mass fraction] 99 % Diego Brandon MD Work Phone: [facility] 01-15-2022 11:26-0400 Systolic blood pressure 105 mm[Hg] Diego Brandon MD Work Phone: [facility] Encounters Encounter Date Encounter Type Care Provider Facility Start: 07-24-2023 End: 07-24-2023 ambulatory ROX F [facility] Start: 06-14-2023 End: 06-14-2023 [facility] Start: 05-29-2023 End: 05-29-2023 ambulatory TYRONE WILLAMS [facility] Start: 12-27-2022 ambulatory TYRONE WILLAMS MD Faci lity:B Start: 12-07-2022 ambulatory [facility] DECORATOR CONSULTANT-NUCLEAR SCIENTIST Fa cility:B Start: 12-07-2022 End: 12-12-2022 ambulatory [facility] DECORATOR CONSULTANT-NUCLEAR SCIENTIST Facility:B Start: 12-07-2022 End: 12-08-2022 ambulatory [facility] DECORATOR CONSULTANT-NUCLEAR SCIENTIST Facility:B Start: 06-07-2022 End: 06-12-2022 ambulatory TYRONE WILLAMS MD Facility:B Start: 06-07-2022 End: 06-11-2022 Outreach Lab TYRONE WILLAMS MD [facility] Start: 01-15-2022 End: 01-15-2022 Office outpatient new 30 minutes Diego Brandon MD Work Phone: [facility] Procedures Date Procedure Procedure Detail Performing Clinician Start: 01-15-2022 Adult depression scr eening assessment Diego Brandon MD Work Phone: Tonsillectomy CHOLO ENCARNACIONSARITA ON DECORATOR CONSULTANT-CNM Tooth extraction CHOLO SINGLETON DECORATOR CONSULTANT-CNM Plan of Treatment Date Care Activity Detail Author Start: 01-15-2023 Adult depression screening assessment DEPRESSION SCREENING [facility] Start: 03-02-2022 Influenza vaccination INFLUENZA (#1) [facility] Start: 03-02-2021 FLU (#1) FLU (#1) [facility] Start: 02-06-2017 Microscopic observat ion [Identifier] in Cervix by Cyto stain Pap Smear [facility] Start: 02-06-2017 PAP TESTING PAP TESTING [facility] Start: 02-06-2015 Urine microalbumin profile DTAP,TDAP,TD (1 - Tdap) [facility] Start: 02-06-2014 HEPATITIS C SCREENING HEPATITIS C SC REENING [facility] Start: 02-06-2014 HIV SCREENING HIV SCREENING [facility] Start: 2012 MenB (1 of 2 - MenB 2-Dose Series) MenB (1 of 2 - MenB 2-Dose Series) [facility] Start: 02-06-2010 PEDS TO ADULT TRANSI TION ANNUAL ASSESSMENT PEDS TO ADULT TRANSITION ANNUAL ASSESSMENT [facility] Start: 2008 PEDS TO ADULT TRANSI TION INITIAL DISCUSSION PEDS TO ADULT TRANSITION INITIAL DISCUSSION [facility] Start: 02-06-2007 HPV (1 - 2-dose series) HPV (1 - 2-dose series) [facility] Start: 02-06-2007 HPV VACCINE (1 - 2-d ose series) HPV VACCINE (1 - 2-dose series) [facility] Start: 02-06-2003 Tetanus Diphtheria a nd Pertussis Vaccines (1 - Tdap) Tetanus Diphtheria and Pertussis Vaccines (1 - Tdap) [facility] Start: 02-06-2001 COVID-19 (1) COVID-19 (1) [facility] Start: 02-06-1997 MMR (1 of 1 - Standa rd series) MMR (1 of 1 - Standard series) [facility] Start: 02-06-1997 Varicella (1 of 2 - 2-dose childhood series) Varicella (1 of 2 - 2-dose childhood series) [facility] Start: 1996 COVID-19 VACCINE (#1) COVID-19 VACCI NE (#1) [facility] End: 10-08-2021 Homocysteine, total plasma [facility] Work Phone: Payers Date Payer Category Payer Self-pay 2022 Unknown [id number] 2021 Unknown ANTHEM ANTHEM BC BS PPO [id number] 2021-Present [address] [place] [address] [id number] 2021 Unknown ANTHEM BLUE ACCE SS PPO [id number] 2021-Present [phone] [address] [place] [address] PPO [id number] 1996 Unknown [id number] 1996 Unknown [id number] 1996 Unknown [id number] 1996 Unknown [id number] 1996 Unknown [id number] 1996 Unknown [id number] 1996 Unknown [id number] 1996 Unknown [id number] 1996 Unknown [id number] Social History Date Type Detail Facility Start: 03-25-2020 End: 01-15-2022 Never smoked tobacco (finding) [facility] Sex Assigned At Female [facility] Start: 08-31-2021 End: 01-15-2022 Tobacco use and exposure Smokeless tobacco non-user [facility] Start: 09-05-2021 End: 01-15-2022 Alcohol intake Current drinker of alcohol (finding) [facility] Start: 08-31-2021 History SDOH Alcohol Comment occasional [facility] Start: 1996 Sex Assigned At Not on file A [facility] Start: 09-28-2021 End: 01-15-2022 Exposure to SARS-CoV-2 (event) Not sure [facility] Clinical Note 12-08-2022 Note Date & [...] Locations *1: This test was performed at: [facility], [address] [place] [address], [facility] , [facility] ([place]) SARS-CoV-2 (COVID-19) RNA SANDRA+probe Ql (Nph) 06-08-2022 Note Date & Type Note Facility 06-08-2022 SARS-CoV-2 (COVID -19) RNA SANDRA+probe Ql (Nph) Negative *NA* (06/08/22 5:08 PM) AO Auto Urine SS Progress note 01-15-2022 Note Date & Type Note Facility 01-15-2022 Note HNO ID: [id number] Author: Diego Brandon MD Service: ? Author [...] PCP for further care Check with your CLOTH GRADER if Ok to take this med Diego Brandon MD [facility] Instructions 01-15-2022 Patient Instructions Note Date & Type Note Facility 01-15-2022 Instructions Diego Brandon MD - 01/15/2022 12:15 PM EDT No antibiotic is needed right now F/U PCP for further care Check with your CLOTH GRADER if Ok to take this med Explained documented in this encounter [facility] History of Present illness Narrative 01-15-2022 [...] PCP for further care Check with your CLOTH GRADER if Ok to take this med Diego Brandon MD documented in this encounter [facility] Evaluation + Plan note Note Date & Type Note Facility Evaluation + Plan note No data available for this section [facility] Evaluation note Note Date & Type Note Facility documented in this encounter [facility] Evaluation note Note Date & Type Note Facility documented in this encounter [facility] Discharge instructions Note Date & Type Note Facility Hospital Discharge instructions No data available for this section [facility] Progress note Note Date & Type Note Facility Progress note No data available for this section [facility] Summary Purpose Family History No Family History Records FoundNo Family History Records FoundNo Family History Records FoundNo Family History Records FoundNo Family History Records Found Advance Directives No Advanced Directives Records FoundDocuments on File Type Date Recorded Patient Core Composer Machine Tender Expl anation Power of Sole Splitter Additional Source Comments INFORMATION SOURCE (unrecogn ized section and content) DATE CREATED AUTHOR AUTHOR'S ORGANIZ ATION 09/30/2020 [employer] DATE CREATED AUTHOR AUTHOR'S ORGANIZ ATION 01/19/2022 [facility] DATE CREATED AUTHOR AUTHOR'S ORGANIZ ATION 12/28/2022 [facility] ([place]) DATE CREATED AUTHOR AUTHOR'S ORGANIZ ATION 07/25/2023 [facility] Care Teams (unrecognized sec tion and content) Manager Meat Relationship Specialty Start Date End Date Tyrone Willams MD [address] [place] [address] PCP - General Family Practice 01/15/22 Source Comments (unrecognize d section and content) In the event this informatio n is protected by the Federal Confidentiality of Alcohol and Drug Abuse Patient Records regulations: The Federal rules restrict any use of the information to criminally investigate or prosecute any alcohol or drug abuse patient.[facility] Reason for Visit (unrecogniz ed section and content) Care Team (unrecognized sect ion and content) Care Team Personnel Name: TYRONE WILLAMS MD Position: P4 Physician - Primary Care Member Role: Primary Care Physician Address: Address: [address] [place] [address] [address] Care Team Related Persons Name: JESSIKA PERALES Address: [address] [place], [place] [id number] Name: AMANDA PERALES Name: AMANDA PERALES Name: [...] BE BASED ON THE PRIMARY CLINICAL RECORDS. [facility] [employer] [facility]. provides no warranty or guarantee of the accuracy or completeness of information in this document.
[2023-08-23] MEDS: Betamethasone/Betamethasone 30 MG/5 ML Vial 12 MG IM (13:15)
--- NOTE | 2023-08-23 18:05 | OB.TRI.HP_ITS ---
HPI - General HPI Narrative CRUZ ALVAREZ, is a 28 y/o @ 32 weeks 1 day who returns to L&D with more frequent contractions. She was seen on L&D earlier today and was given celestone x 1 for threatened labor. Her cx at the time was found to be 1/50/-1 and unchanged. She is currently unchanged but complains of some back tightening. The contraction pain is rated low and not picking up on the monitor. Nurse is able to palpate mild contractions every 3 minutes however. Maternal Data Information RAJNI Calculator Estimated Delivery Date Method Current WG Current Estimate 10/17/23 Ultrasound #1 32w 1d Other Estimates 10/08/23 LMP (Certain) 33w 3d [facility] Medical History demise, greater than 22 weeks, antepartum Vaginal delivery Home Medications famotidine 40 mg tablet 40 mg PO DAILY 02/15/22 [History Last Taken 09/18/22] multivitamin no.47-iron fum 27 mg-folate no.1 1 mg-dha 300 mg capsule (PNV-DHA) 1 cap PO DAILY 02/15/22 [History Last Taken 09/18/22] aspirin 81 mg tablet,delayed release (Adult Aspirin Regimen) 81 mg PO DAILY 04/19/22 [History Last Taken 09/18/22] ferrous sulfate 325 mg (65 mg iron) tablet 325 mg PO DAILY 08/23/23 [History Last Taken Unknown] magnesium oxide 500 mg capsule 500 mg PO DAILY 08/23/23 [History Last Taken Unknown] Allergy/AdvReac Type Severity Reaction Status Date / Time No Known Allergies Allergy Verified 08/23/23 11:29 Family History Brother Autism Mother Pulmonary HTN Aunt Pulmonary HTN maternal Grandmother Pulmonary HTN Maternal Breast cancer maternal Surgical History Hx of tonsillectomy [place] teeth extracted Social History adopted: No household members: spouse and children housing: house number of children: 1 current occupational status: employed 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 current occupational exposures/hazards: No pets and animals: Yes pets and animals: dog(s) history of recent travel: No sexually active: Yes Smoking Status: Never smoker alcohol intake: former details: socially on occasion- not while substance use type: does not use well-balanced diet: about half the time caffeine: Yes Type: coffee Number of servings: 1 eating out: rarely or never during the past year weight has: remained stable what type of physical activity do you participate in: none [place]/jehovah's witness: Congregational seatbelt use: always do you feel safe at home: Yes additional social history: Spouse Ag 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 Date Name GA/Weeks Outcome Route Bth Weight Infant Gen Labor Lgth Anesthesia Del Locatn Provider FOB 03/09/21 Kev 26 still 09/18/22 Finlee 39 live - full term 6#11 Male epid ural [facility] Delivery Date: 03/09/21 Last Updated by: Sravanthi Flores MD [facility] Visit Details Expected Delivery Route/Plan if placenta normal location Labor Preferences- CB/BF classes: [] labor support person: [] labor intervention preferences: [] pain management options preferred: [] cut cord/dad catch: [] : [] PP control planned: [] discussed possible routes of delivery and associated risks: [] special requests: [] Plans Covid status: declined Flu vaccine: declined Tdap vaccine: [] Rhogam: [] LARC form signed: [] movement and labor precautions reviewed. Problem list reviewed and updated with the most current plan of care details and appropriate orders placed. Relevant counseling for the gestational age provided. Continue routine care and follow up unless otherwise noted in visit notes/problem list details OB Flowsheet Initial Weight: Not Recorded Date -?-?-?-?-?-?-?-?-?-?-?-?- EGA Weight BP Urine Prot -?-?-?-?-?-?-?-?-?-?-?-?- Glucose FHR FuHt Pres Dilation -?-?-?-?-?-?-?-?-?-?-?-?- Effaced St Visit Note 02/22/23 -?-?-?-?-?-?-?-?-?-?-?-?- 6w 1d 149 lb 6 oz 117/80 -?-?-?-?-?-?-?-?-?-?-?-?- 120 -?-?-?-?-?-?-?-?-?-?-?-?- JV- CRL 1 week o ff from LMP. will bring back in 2 weeks due to h/o multiple losses. started baby asa. JV- CRL 1 week off from LMP. will bring back in 2 weeks due to h/o multiple losses. started baby asa. declines NIPT. 03/09/23 -?-?-?-?-?-?-?-?--?-?-?-?- 8w 2d 149 lb 8 oz 118/75 Nega tive -?-?-?-?-?-?-?-?-?-?-?-?- Negative 150 -?-?-?-?-?-?-?-?-?-?-?-?- SM- no vb crampi ng 04/05/23 -?-?-?-?-?-?-?-?-?-?-?-?- 12w 1d 146 lb 2 oz 113/76 Nega tive -?-?-?-?-?-?-?-?-?-?-?-?- Negative -?-?-?-?-?-?-?-?-?-?-?-?- KW-no vb/crampin g. Visualized HR and movement on handheld US. 05/01/23 -?-?-?-?-?-?-?-?-?-?-?-?- 15w 6d 149 lb 8 oz 114/72 Nega tive -?-?-?-?-?-?-?-?-?-?-?-?- Negative 154 -?-?-?-?-?-?-?-?-?-?-?-?- MH-No VB. Feels well. Less anxious with this but also has son to occupy her. Will do PN labs today 05/31/23 -?-?-?-?-?-?-?-?-?-?-?-?- 20w 1d 151 lb 118/72 -?-?-?-?-?-?-?-?-?-?-?-?- 150 -?-?-?-?-?-?-?-?-?-?-?-?- SM- no vb lof go od fm noregular ctx discussed US findings 07/10/23 -?-?-?-?-?-?-?-?-?-?-?-?- 25w 6d 157 lb 98/70 Negative -?-?-?-?-?-?-?-?-?-?-?-?- Negative 150 26 -?--?-?-?-?-?-?-?-?-?-?-?- SM- no vb lof go od fm n oregular ctx repeat US in 2 weeks 08/07/23 -?-?-?-?-?-?-?-?-?-?-?-?- 29w 6d 160 lb 9 oz 108/68 Nega tive -?-?-?-?-?-?-?-?-?-?-?-?- Negative 140 31 -?-?-?-?-?-?-?-?-?-?-?-?- kw-no vb/lof/ctx . good fm. repeat US done and placenta resolved. feeling bladder pressure at times- sent for culture. 08/23/23 -?-?-?-?-?-?-?-?-?-?-?-?- 32w 1d 162 lb 8 oz 110/76 Nega tive -?-?-?-?-?-?-?-?-?-?-?-?- Negative 145 Cephalic 1 -?-?-?-?-?-?-?-?-?-?-?-?- 50 -1 JV- pt com [place] of front and back pelvic pain that is intermittent and called in twice this week. sending to L&D for steroids and monitoring to r/o ptl. ROS Constitutional Constitutional: Reports systems reviewed and no addt'l complaints, except as documented Gastrointestinal Gastrointestinal: Denies bloating, constipation, cramping, diarrhea, nausea or vomiting Genitourinary Genitourinary: Reports other Details: Denies vaginal odor, vaginal bleeding, or vaginal discharge ; Denies difficulty urinating or flank pain Physical Exam HEENT normocephalic Resp normal respiratory effort and normal air movement no CVA tenderness Extremity normal to inspection General Extremity: edema bilateral (trace ) NST FHR Rate Baby A Baseline: 140 Variability:: Moderate Accelerations:: 15 x 15 Decelerations:: None NST Reactive:: Yes FHR Category:: Category I Assessment & Plan (1) Threatened labor: COMMENT: steroids 08/23/23 PLAN: plan to push fluids and try tylenol + procardia 10 mg. plan to either watch over night or if feeling better may dc to home and ask her to return in 24 hrs for next dose. (2) Anemia affecting : COMMENT: iron given (3) Placenta previa antepartum: COMMENT: pelvic rest and repeat imaging 28 weeks-RESOLVED (4) GBS (group B streptococcus) UTI complicating : QUALIFIERS: Trimester: first trimester Qualified Code(s): O23.41 - Unspecified infection of urinary tract in , first trimester; B95.1 - Streptococcus, group B, as the cause of diseases classified elsewhere COMMENT: treated at 30 weeks, repeat culture in 4 weeks, treat in labor only PCN (5) History of miscarriage, currently : COMMENT: May ask for more freq visits at 26 wk due to past loss 4 miscarriages took baby asa with last 2 pregnancies and plans to do that this . (6) MTHFR deficiency complicating : QUALIFIERS: Trimester: second trimester Qualified Code(s): O99.282 - Endocrine, nutritional and metabolic diseases complicating , second trimester; E72.12 - Methylenetetrahydrofolate reductase deficiency (7) Supervision of high-risk : QUALIFIERS: Trimester: second trimester Qualified Code(s): O09.92 - Supervision of high risk , unspecified, second trimester COMMENT: PRR , RAJNI 10/08/23 jaye Diego ([place] 26 wk demise) Mark Luong (8) : QUALIFIERS: Weeks of gestation: 32 weeks Qualified Code(s): Z3A.32 - 32 weeks gestation of COMMENT: declined genetic ntd & carrier testing. anatomy nl (9) Cholelithiasis: QUALIFIERS: Cholelithiasis location: gallbladder Cholecystitis presence: without cholecystitis Biliary obstruction: without biliary obstruction Qualified Code(s): K80.20 - Calculus of gallbladder without cholecystitis without obstruction (10) Gallbladder problem: (11) Acid reflux: Charges/Coding Multi Select Codes Visit Charges Office Visit/Consults: 18182 OV L3 Est 20min Urinary/Genital Urinary/Genital CPT Codes: 52956-91 non-stress test Interp
[2023-08-23] MEDS: NIFEdipine 10 MG Capsule PO (18:42)
[2023-08-23] MEDS: Acetaminophen 500 MG Tablet 1000 MG PO (18:42)
== END 2023-08-23 19:13 | disposition home or self-care (01) ==
LOC: WPOUT 12:34 → WP 12:35
PROVIDERS: PCP Family Medicine; Referring Provider Obstetrics & Gynecology; Visit Provider Obstetrics & Gynecology
DX: O47.03 False labor before 37 completed weeks of gestation, third trimester (principal); O99.013 Anemia complicating pregnancy, third trimester; O09.93 Supervision of high risk pregnancy, unspecified, third trimester; O99.613 Diseases of the digestive system complicating pregnancy, third trimester; K80.20 Calculus of gallbladder without cholecystitis without obstruction; K21.9 Gastro-esophageal reflux disease without esophagitis; Z3A.32 32 weeks gestation of pregnancy; Z79.899 Other long term (current) drug therapy; Z79.82 Long term (current) use of aspirin
CPT/HCPCS: 59025; 59050; 96372; 99221; G0378; J0702

== ENCOUNTER → 2023-08-23 | Outpatient (CLI) | payer BC, SELFPAY ==
[2023-08-23 11:34] LABS: Absolute Lymphocyte Count 1.54 X10^3/uL (0.83-4.51); Basophil# 0.02 X10^3/uL; Basophil% 0.2 % (0-1); Eosinophil# 0.08 X10^3/uL; Eosinophils% 0.8 % (0-5); Hematocrit 32.7 % (37-47); Hemoglobin 10.8 g/dL (12.0-15.0); Lymphocyte # 1.54 X10^3/ul (0.83-4.51); Lymphocyte % 16.2 % (19-41); Mean Corpuscular Hgb 29.8 pg (27.0-32.0); Mean Corpuscular Volume 90.3 fL (81-99); Mean Platelet Vol. 10.5 fl (6.2-12.0); Monocyte# 0.83 X10^3/uL; Monocyte% 8.7 % (0-10); NRBC Flagged by Analyzer 0 % (0-5); Neutrophil # 6.96 X10^3/uL (2.7-7.7); Neutrophil % 73.3 % (47-70); Platelet Count 188 K/mm3 (150-450); RBC Distribution Width CV 14.6 % (11.6-14.6); RBC Distribution Width SD 48.5 fl (35.1-43.9); Red Blood Count 3.62 M/mm3 (4.2-5.4); White Blood Count 9.5 K/mm3 (4.4-11.0)
--- OUTSIDE RECORDS SUMMARY | 2023-08-23 11:47 | XMS RPT_ITS | CCD ---
Author Name Unknown Address [address] [place] [address] Organization [facility] Care Team Providers Care Assistant Plant Controller Name Role Phone REFERRING, PHY WO ID Unavailable Unavailable ELLEN MIRZA Unavailable Unavailable REFERRING, PHY WO ID Unavailable Unavailable TYRONE WILLAMS MD Primary Care Physician Tyrone Willams MD Primary Care Provider Tamera Friedman CGC Unavailable Unavailab Tyrone Aguero MD Primary Care Provider 1( [phone] ROCK RENEE, SHAHEED Attending TYRONE Murray MD Primary Care Unavailable ROCK RENEE, SHAHEED Attending UnavailTYRONE Lozoya MD Primary Care Unavailable ROCK RENEE, SHAHEED Attending UnavailTYRONE Lozoya MD Primary Care Unavailable TYRONE WILLAMS MD Attending Unavailable TYRONE WILLAMS MD Primary Care Unavailable TYRONE WILLAMS MD Attending Unavailable TYRONE WILLAMS MD Primary Care Unavailable TYRONE WILLAMS Primary Care Unavailable EJSSE MERCADO Attending Unavailable TORRIE STEWART Referring Unavailable ELISABETH SOLOMON Referring UnavailTYRONE Lozoya Primary Care Unavailable YANA PATTERSON Attending Unavailable ROX GIBBS Attending Unavailable ELISABETH SOLOMON Referring UnavailTYRONE Lozoya Primary Care Unavailable Medications Current Medications [...] tab(s), 0 Refill(s), 06/14/22 9:04:00 EST, Pharmacy: [facility], 157.3, cm, 06/07/22 15:34:00 EST, Height, 67.8 [...] to 10 days. Pleas check with your MEDICAL PRACTICE ASSISTANT if ok to take 30 capsule 0 [...] Date Time Vital Sign Value Performing Clinician Alexandra benoit 01-15-2022 11:26-040 Body temperature 97.81 [degF] Diego Brandon MD Work Phone: [facility] 01-15-2022 11:26-040 Body weight 65.77 kg Diego Brandon MD Work Phone: [facility] 01-15-2022 11:26-040 Diastolic blood pressure 86 mm[Hg] Diego Brandon MD Work Phone: [facility] 01-15-2022 11:26-040 Heart rate 87 /min Diego Brandon MD Work Phone: [facility] 01-15-2022 11:26-0400 Respiratory rate 16 /min Diego Brandon MD Work Phone: [facility] 01-15-2022 11:26-0400 SaO2% (BldA) [Mass fraction] 99 % Diego Brandon MD Work Phone: [facility] 01-15-2022 11:26-0400 Systolic blood pressure 105 mm[Hg] Diego Brandon MD Work Phone: [facility] Encounters Encounter Date Encounter Type Care Provider Facility Start: 07-24-2023 End: 07-24-2023 ambulatory ROX F [facility] Start: 06-14-2023 End: 06-14-[facility]: 05-29-2023 End: 05-29-2023 ambulatory TYRONE WILLAMS [facility] Start: 12-27-2022 ambulatory TYRONE WILLAMS MD Faci lity:B Start: 12-07-2022 ambulatory [facility] MOTION PICTURE CAMERA OPERATOR-SCREEN WRITER Fa cility:B Start: 12-07-2022 End: 12-12-2022 ambulatory [facility] MOTION PICTURE CAMERA OPERATOR-SCREEN WRITER Facility:B Start: 12-07-2022 End: 12-08-2022 ambulatory [facility] MOTION PICTURE CAMERA OPERATOR-SCREEN WRITER Facility:B Start: 06-07-2022 End: 06-12-2022 ambulatory TYRONE WILLAMS MD Facility:B Start: 06-07-2022 End: 06-11-2022 Outreach Lab TYRONE WILLAMS MD [facility] Start: 01-15-2022 End: 01-15-2022 Office outpatient new 30 minutes Diego Brandon MD Work Phone: [facility] [place] Procedures Date Procedure Procedure Detail Performing Clinician Start: 01-15-2022 Adult depression scr eening assessment Diego Brandon MD Work Phone: Tonsillectomy CHOLO ENCARNACIONSARITA ON MOTION PICTURE CAMERA OPERATOR-CNM Tooth extraction CHOLO SINGLETON MOTION PICTURE CAMERA OPERATOR-CNM Plan of Treatment Date Care Activity Detail Author Start: 01-15-2023 Adult depression screening assessment DEPRESSION SCREENING [facility] Start: 03-02-2022 Influenza vaccination INFLUENZA (#1) [facility] Start: 03-02-2021 FLU (#1) FLU (#1) [facility] Start: 02-06-2017 Microscopic observat ion [Identifier] in Cervix by Cyto stain Pap Smear [facility] Start: 02-06-2017 PAP TESTING PAP TESTING [facility] Start: 02-06-2015 Urine microalbumin profile DTAP,TDAP,TD (1 - Tdap) [facility] Start: 02-06-2014 HEPATITIS C SCREENING HEPATITIS C SC REENING [facility] Start: 02-06-2014 HIV SCREENING HIV SCREENING [facility] Start: 2012 MenB (1 of 2 - MenB 2-Dose Series) MenB (1 of 2 - MenB 2-Dose Series) [facility] Start: 02-06-2010 PEDS TO ADULT TRANSI TION ANNUAL ASSESSMENT PEDS TO ADULT TRANSITION ANNUAL ASSESSMENT [facility] Start: 2008 PEDS TO ADULT TRANSI TION INITIAL DISCUSSION PEDS TO ADULT TRANSITION INITIAL DISCUSSION [facility] Start: 02-06-2007 HPV (1 - 2-dose series) HPV (1 - 2-dose series) [facility] Start: 02-06-2007 HPV VACCINE (1 - 2-d ose series) HPV VACCINE (1 - 2-dose series) [facility] Start: 02-06-2003 Tetanus Diphtheria a nd Pertussis Vaccines (1 - Tdap) Tetanus Diphtheria and Pertussis Vaccines (1 - Tdap) [facility] Start: 02-06-2001 COVID-19 (1) COVID-19 (1) [facility] Start: 02-06-1997 MMR (1 of 1 - Standa rd series) MMR (1 of 1 - Standard series) [facility] Start: 02-06-1997 Varicella (1 of 2 - 2-dose childhood series) Varicella (1 of 2 - 2-dose childhood series) [facility] Start: 1996 COVID-19 VACCINE (#1) COVID-19 VACCI NE (#1) [facility] End: 10-08-2021 Homocysteine, total plasma [facility] Work Phone: Payers Date Payer Category Payer Self-pay 2022 Unknown [id number] 2021 Unknown ANTHEM ANTHEM BC BS PPO [id number] 2021-Present [address] [place] [address] [id number] 2021 Unknown ANTHEM BLUE ACCE SS PPO [id number] 2021-Present [phone] [address] [place] [address] PPO [id number] 1996 Unknown [id number] 1996 Unknown [id number] 1996 Unknown [id number] 1996 Unknown [id number] 1996 Unknown [id number] 1996 Unknown [id number] 1996 Unknown [id number] 1996 Unknown [id number] 1996 Unknown [id number] Social History Date Type Detail Facility Start: 03-25-2020 End: 01-15-2022 Never smoked tobacco (finding) [facility] Sex Assigned At Female [facility] Start: 08-31-2021 End: 01-15-2022 Tobacco use and exposure Smokeless tobacco non-user [facility] Start: 09-05-2021 End: 01-15-2022 Alcohol intake Current drinker of alcohol (finding) [facility] Start: 08-31-2021 History SDOH Alcohol Comment occasional [facility] Start: 1996 Sex Assigned At Not on file [facility] Start: 09-28-2021 End: 01-15-2022 Exposure to SARS-CoV-2 (event) Not sure [facility] Clinical Note 12-08-2022 Note Date & [...] Locations *1: This test was performed at: [facility], [address] [place] [address], [facility] , [facility] ([place]) SARS-CoV-2 (COVID-19) RNA SANDRA+probe Ql (Nph) 06-08-2022 Note Date & Type Note Facility 06-08-2022 SARS-CoV-2 (COVID -19) RNA SANDRA+probe Ql (Nph) Negative *NA* (06/08/22 5:08 PM) AO Auto Urine SS Progress note 01-15-2022 Note Date & Type Note Facility 01-15-2022 Note HNO ID: [id number] Author: Diego Brandon MD Service: ? Author [...] PCP for further care Check with your MEDICAL PRACTICE ASSISTANT if Ok to take this med Diego Brandon MD [facility] Instructions 01-15-2022 Patient Instructions Note Date & Type Note Facility 01-15-2022 Instructions Diego Brandon MD - 01/15/2022 12:15 PM EDT No antibiotic is needed right now F/U PCP for further care Check with your MEDICAL PRACTICE ASSISTANT if Ok to take this med Explained documented in this encounter [facility] History of Present illness Narrative 01-15-2022 Diego [...] PCP for further care Check with your MEDICAL PRACTICE ASSISTANT if Ok to take this med Diego Brandon MD documented in this encounter [facility] Evaluation + Plan note Note Date & Type Note Facility Evaluation + Plan note No data available for this section [facility] Evaluation note Note Date & Type Note Facility documented in this encounter [facility] Evaluation note Note Date & Type Note Facility documented in this encounter [facility] Discharge instructions Note Date & Type Note Facility Hospital Discharge instructions No data available for this section [facility] Progress note Note Date & Type Note Facility Progress note No data available for this section [facility] Summary Purpose Family History No Family History Records FoundNo Family History Records FoundNo Family History Records FoundNo Family History Records FoundNo Family History Records Found Advance Directives No Advanced Directives Records FoundDocuments on File Type Date Recorded Patient Card Hand Expl anation Power of Research Coordinator Additional Source Comments INFORMATION SOURCE (unrecogn ized section and content) DATE CREATED AUTHOR AUTHOR'S ORGANIZ ATION 09/30/2020 [employer] DATE CREATED AUTHOR AUTHOR'S ORGANIZ ATION 01/19/2022 [facility] DATE CREATED AUTHOR AUTHOR'S ORGANIZ ATION 12/28/2022 [facility] ([place]) DATE CREATED AUTHOR AUTHOR'S ORGANIZ ATION 07/25/2023 [facility] Care Teams (unrecognized sec tion and content) Assistant Plant Controller Relationship Specialty Start Date End Date Tyrone Willams MD [address] [place] [address] PCP - General Family Practice 01/15/22 Source Comments (unrecognize d section and content) In the event this informatio n is protected by the Federal Confidentiality of Alcohol and Drug Abuse Patient Records regulations: The Federal rules restrict any use of the information to criminally investigate or prosecute any alcohol or drug abuse patient.[facility] Reason for Visit (unrecogniz ed section and content) Care Team (unrecognized sect ion and content) Care Team Personnel Name: TYRONE WILLAMS MD Position: P4 Physician - Primary Care Member Role: Primary Care Physician Address: Address: [address] [place] [address] Care Team Related Persons Name: JESSIKA PERALES Address: [address] [place], [place] [id number] Name: AMANDA PERALES Name: AMANDA PERALES Name: [...] BE BASED ON THE PRIMARY CLINICAL RECORDS. [facility] [employer] [facility]. provides no warranty or guarantee of the accuracy or completeness of information in this document.
== END | disposition home or self-care (01) ==
PROVIDERS: PCP Family Medicine; Referring Provider Advanced Practice Midwife; Visit Provider Advanced Practice Midwife
DX: O23.40 Unspecified infection of urinary tract in pregnancy, unspecified trimester (principal); O99.019 Anemia complicating pregnancy, unspecified trimester; B95.1 Streptococcus, group B, as the cause of diseases classified elsewhere; Z3A.00 Weeks of gestation of pregnancy not specified
CPT/HCPCS: 36415; 85025; 87077; 87086; 87088; 87186; J0702

== ENCOUNTER 2023-08-24 13:00 | Outpatient (CLI) | payer BC, SELFPAY ==
[2023-08-24] MEDS: Betamethasone/Betamethasone 30 MG/5 ML Vial 12 MG IM (13:20)
--- NOTE | 2023-08-24 13:35 | PCM.PN.BLA ---
Progress Note patient presents to L&D for a repeat celestone injection only. She denies worsening contractions and asks if ok to take the weekend off work to rests. Plan to rest this weekend and follow up early next week.
--- OUTSIDE RECORDS SUMMARY | 2023-08-24 14:22 | XMS RPT_ITS | CCD ---
Author Name Unknown Address [id number] [place] [address] Organization [facility] Care Team Providers Care Project Management Analyst Name Role Phone REFERRING, PHY WO ID [...] tab(s), 0 Refill(s), 06/14/22 9:04:00 EST, Pharmacy: [facility], 157.3, cm, 06/07/22 15:34:00 EST, Height, 67.8 [...] to 10 days. Pleas check with your REAL ESTATE INSTRUCTOR if ok to take 30 capsule 0 [...] 97.81 [degF] Diego Brandon MD Work Phone: [facility] 01-15-2022 11:26-040 Body weight 65.77 kg Diego Brandon MD Work Phone: [facility] 01-15-2022 11:26-040 Diastolic blood pressure 86 mm[Hg] Diego Brandon MD Work Phone: [facility] 01-15-2022 11:26-040 Heart rate 87 /min Diego Brandon MD Work Phone: [facility] 01-15-2022 11:26-0400 Respiratory rate 16 /min Diego Brandon MD Work Phone: [facility] 01-15-2022 11:26-0400 SaO2% (BldA) [Mass fraction] 99 % Diego Brandon MD Work Phone: [facility] 01-15-2022 11:26-0400 Systolic blood pressure 105 mm[Hg] Diego Brandon MD Work Phone: [facility] Encounters Encounter Date Encounter Type Care Provider Facility Start: 07-24-2023 End: 07-24-2023 ambulatory ROX F [facility] Start: 06-14-2023 End: [facility]14[facility] Start: 05-29-2023 End: 05-29-2023 ambulatory TYRONE WILLAMS [facility] Start: 12-27-2022 ambulatory TYRONE WILLAMS MD Faci lity:B Start: 12-07-2022 ambulatory [facility] RESTRICTIVE PREPARATION OPERATOR-ROTARY OPERATOR Fa cility:B Start: 12-07-2022 End: 12-12-2022 ambulatory [facility] RESTRICTIVE PREPARATION OPERATOR-ROTARY OPERATOR Facility:B Start: 12-07-2022 End: 12-08-2022 ambulatory [facility] RESTRICTIVE PREPARATION OPERATOR-ROTARY OPERATOR Facility:B Start: 06-07-2022 End: 06-12-2022 ambulatory TYRONE WILLAMS MD Facility:B Start: 06-07-2022 End: 06-11-2022 Outreach Lab TYRONE WILLAMS MD [facility] Start: 01-15-2022 End: 01-15-2022 Office outpatient new 30 minutes Diego Brandon MD Work Phone: [facility] Procedures Date Procedure Procedure Detail Performing Clinician Start: 01-15-2022 Adult depression scr eening assessment Diego Brandon MD Work Phone: Tonsillectomy [facility] RESTRICTIVE PREPARATION OPERATOR-CNM Tooth extraction [facility] RESTRICTIVE PREPARATION OPERATOR-CNM Plan of Treatment Date Care Activity Detail Author Start: 01-15-2023 Adult depression screening assessment DEPRESSION SCREENING [facility] Start: 03-02-2022 Influenza vaccination INFLUENZA (#1) [facility] Start: 03-02-2021 FLU (#1) FLU (#1) [facility] Start: 02-06-2017 Microscopic observat ion [Identifier] in Cervix by Cyto stain Pap Smear [facility] Start: 02-06-2017 PAP TESTING PAP TESTING [facility] Start: 02-06-2015 Urine microalbumin profile DTAP,TDAP,TD (1 - Tdap) [facility] Start: 02-06-2014 HEPATITIS C SCREENING HEPATITIS C SC REENING [facility] Start: 02-06-2014 HIV SCREENING HIV SCREENING [facility] Start: 2012 MenB (1 of 2 - MenB 2-Dose Series) MenB (1 of 2 - MenB 2-Dose Series) [facility] Start: 02-06-2010 PEDS TO ADULT TRANSI TION ANNUAL ASSESSMENT PEDS TO ADULT TRANSITION ANNUAL ASSESSMENT [facility] Start: 2008 PEDS TO ADULT TRANSI TION INITIAL DISCUSSION PEDS TO ADULT TRANSITION INITIAL DISCUSSION [facility] Start: 02-06-2007 HPV (1 - 2-dose series) HPV (1 - 2-dose series) [facility] Start: 02-06-2007 HPV VACCINE (1 - 2-d ose series) HPV VACCINE (1 - 2-dose series) [facility] Start: 02-06-2003 Tetanus Diphtheria a nd Pertussis Vaccines (1 - Tdap) Tetanus Diphtheria and Pertussis Vaccines (1 - Tdap) [facility] Start: 02-06-2001 COVID-19 (1) COVID-19 (1) [facility] Start: 02-06-1997 MMR (1 of 1 - Standa rd series) MMR (1 of 1 - Standard series) [facility] Start: 02-06-1997 Varicella (1 of 2 - 2-dose childhood series) Varicella (1 of 2 - 2-dose childhood series) [facility] Start: 1996 COVID-19 VACCINE (#1) COVID-19 VACCI NE (#1) [facility] End: 10-08-2021 Homocysteine, total plasma [facility] Work Phone: Payers Date Payer Category Payer Self-pay 2022 Unknown [id number] 2021 Unknown ANTHEM ANTHEM BC BS PPO [id number] 2021-Present [address] [place] [address] [id number] 2021 Unknown ANTHEM BLUE ACCE SS PPO [id number] 2021-Present [phone] [address] [place] [address] PPO [id number] 1996 Unknown [id number] 1996 Unknown [id number] 1996 Unknown [id number] 1996 Unknown [id number] 1996 Unknown [id number] 1996 Unknown [id number] 1996 Unknown [id number] 1996 Unknown [id number] 1996 Unknown [id number] Social History Date Type Detail Facility Start: 03-25-2020 End: 01-15-2022 Never smoked tobacco (finding) [facility] Sex Assigned At Female [facility] Start: 08-31-2021 End: 01-15-2022 Tobacco use and exposure Smokeless tobacco non-user [facility] Start: 09-05-2021 End: 01-15-2022 Alcohol intake Current drinker of alcohol (finding) [facility] Start: 08-31-2021 History SDOH Alcohol Comment occasional [facility] Start: 1996 Sex Assigned At Not on file [facility] Start: 09-28-2021 End: 01-15-2022 Exposure to SARS-CoV-2 (event) Not sure [facility] Clinical Note 12-08-2022 Note Date & [...] Locations *1: This test was performed at: [facility], [address] [place] [address], [facility] , [facility] ([place]) SARS-CoV-2 (COVID-19) RNA SANDRA+probe Ql (Nph) 06-08-2022 Note Date & Type Note Facility 06-08-2022 SARS-CoV-2 (COVID -19) RNA SANDRA+probe Ql (Nph) Negative *NA* (06/08/22 5:08 PM) AO Auto Urine SS Progress note 01-15-2022 Note Date & Type Note Facility 01-15-2022 Note HNO ID: [id number] Author: Diego Bradnon MD Service: ? Author Type: Physician Type: [...] PCP for further care Check with your REAL ESTATE INSTRUCTOR if Ok to take this med Diego Brandon MD [facility] Instructions 01-15-2022 Patient Instructions Note Date & Type Note Facility 01-15-2022 Instructions Diego Brandon MD - 01/15/2022 12:15 PM EDT No antibiotic is needed right now F/U PCP for further care Check with your REAL ESTATE INSTRUCTOR if Ok to take this med Explained documented in this encounter [facility] History of Present illness Narrative 01-15-2022 Diego [...] PCP for further care Check with your REAL ESTATE INSTRUCTOR if Ok to take this med Diego Brandon MD documented in this encounter [facility] Evaluation + Plan note Note Date & Type Note Facility Evaluation + Plan note No data available for this section [facility] Evaluation note Note Date & Type Note Facility documented in this encounter [facility] Evaluation note Note Date & Type Note Facility documented in this encounter [facility] Discharge instructions Note Date & Type Note Facility Hospital Discharge instructions No data available for this section [facility] Progress note Note Date & Type Note Facility Progress note No data available for this section [facility] Summary Purpose Family History No Family History Records FoundNo Family History Records FoundNo Family History Records FoundNo Family History Records FoundNo Family History Records Found Advance Directives No Advanced Directives Records FoundDocuments on File Type Date Recorded Patient Cloth Napping Supervisor Expl anation Power of Veneer Stock Grader Additional Source Comments INFORMATION SOURCE (unrecogn ized section and content) DATE CREATED AUTHOR AUTHOR'S ORGANIZ ATION 09/30/2020 [employer] DATE CREATED AUTHOR AUTHOR'S ORGANIZ ATION 01/19/2022 [facility] DATE CREATED AUTHOR AUTHOR'S ORGANIZ ATION 12/28/2022 [facility] ([place]) DATE CREATED AUTHOR AUTHOR'S ORGANIZ ATION 07/25/2023 [facility] Care Teams (unrecognized sec tion and content) Project Management Analyst Relationship Specialty Start Date End Date Tyrone Willams MD [address] [place] [address] PCP - General Family Practice 01/15/22 Source Comments (unrecognize d section and content) In the event this informatio n is protected by the Federal Confidentiality of Alcohol and Drug Abuse Patient Records regulations: The Federal rules restrict any use of the information to criminally investigate or prosecute any alcohol or drug abuse patient.[facility] Reason for Visit (unrecogniz ed section and content) Care Team (unrecognized sect ion and content) Care Team Personnel Name: TYRONE WILLAMS MD Position: P4 Physician - Primary Care Member Role: Primary Care Physician Address: Address: [address] [place] [id number] Care Team Related Persons Name: JESSIKA PERALES Address: [address] [place], [place] [id number] Name: AMANDA PERALES Name: AMANDA PERALES Name: [...] BE BASED ON THE PRIMARY CLINICAL RECORDS. [facility] [employer] [facility]. provides no warranty or guarantee of the accuracy or completeness of information in this document.
== END 2023-08-24 13:40 | disposition home or self-care (01) ==
LOC: WPOUT 13:21 → WP 13:22
PROVIDERS: PCP Family Medicine; Visit Provider Registered Nurse
DX: O47.1 False labor at or after 37 completed weeks of gestation (principal); Z3A.32 32 weeks gestation of pregnancy
CPT/HCPCS: 96372; 99221; G0378; J0702

== ENCOUNTER 2023-10-02 18:20 | Inpatient (IN) | payer BC, SELFPAY ==
[2023-08-23 17:20] VITALS: RESP 16
[2023-08-23 18:47] VITALS: RESP 24
[2023-10-02] VITALS (28 sets, daily range): BP systolic 87–129; BP diastolic 47–76; PULSE 66–116; RESP 16; TEMP 36.1–36.9; O2SAT 93–97; BMI 31.1
[2023-10-02] MEDS: Lactated Ringers 1,000 ML 200 ML IV ×2 (18:30→22:32)
--- NOTE | 2023-10-02 18:45 | HP.PCM.OB_ITS ---
HPI - General General Date of Admission: 10/02/23 Date of Service: 10/02/23 HPI Narrative CRUZ ALVAREZ, is a 28 F 37.6 weeks who presents to unit for labor. cervical change noted. GBS positive, desires epidural Maternal Data Information RAJNI Calculator Estimated Delivery Date Method Current WG Current Estimate 10/17/23 Ultrasound #1 37w 6d Other Estimates 10/08/23 LMP (Certain) 39w 1d Final RAJNI: 10/17/23 Final RAJNI Source: US >20 weeks Gestational age: 37.6 weeks PFSH PFS Medical History demise, greater than 22 weeks, antepartum Vaginal delivery Home Medications famotidine 40 mg tablet 40 mg PO DAILY 02/15/22 [History Last Taken 10/01/23 21:00] multivitamin no.47-iron fum 27 mg-folate no.1 1 mg-dha 300 mg capsule (PNV-DHA) 1 cap PO DAILY 02/15/22 [History Last Taken 10/01/23 06:00] aspirin 81 mg tablet,delayed release (Adult Aspirin Regimen) 81 mg PO DAILY preg radu 04/19/22 [History Last Taken 10/01/23 06:00] ferrous sulfate 325 mg (65 mg iron) tablet 325 mg PO DAILY 08/23/23 [History Last Taken 10/01/23 21:00] magnesium oxide 500 mg capsule 500 mg PO DAILY 08/23/23 [History Last Taken 10/01/23 21:00] Allergy/AdvReac Type Severity Reaction Status Date / Time No Known Allergies Allergy Verified 10/02/23 16:33 Family History Brother Autism Mother Pulmonary HTN Aunt Pulmonary HTN maternal Grandmother Pulmonary HTN Maternal Breast cancer maternal Surgical History Hx of tonsillectomy [place] teeth extracted Social History adopted: No household members: spouse and children housing: house number of children: 1 current occupational status: employed 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 current occupational exposures/hazards: No pets and animals: Yes pets and animals: dog(s) history of recent travel: No sexually active: Yes Smoking Status: Never smoker alcohol intake: former details: socially on occasion- not while substance use type: does not use well-balanced diet: about half the time caffeine: Yes Type: coffee Number of servings: 1 eating out: rarely or never during the past year weight has: remained stable what type of physical activity do you participate in: none [place]/anabaptist: Quaker seatbelt use: always do you feel safe at home: Yes additional social history: Spouse 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 Date Name GA/Weeks Outcome Route Bth Weight Gen Labor Lgth Anesthesia Del Locatn Provider FOB 03/09/21 Kev 26 still 09/18/22 Finlejose eduardo 39 live - full term 6#11 Male epid ural [facility] DANII Ag Delivery Date: 03/09/21 Last Updated by: Sravanthi Flores MD [facility] Visit Details Expected Delivery Route/Plan if placenta normal location Labor Preferences- CB/BF classes: [] labor support person: [] labor intervention preferences: [] pain management options preferred: cut cord/dad catch: [] : [] PP control planned: [] discussed possible routes of delivery and associated risks: [] special requests: [] Plans Covid status: declined Flu vaccine: declined Tdap vaccine: [] Rhogam: [] LARC form signed: [] movement and labor precautions reviewed. Problem list reviewed and updated with the most current plan of care details and appropriate orders placed. Relevant counseling for the gestational age provided. Continue routine care and follow up unless otherwise noted in visit notes/problem list details OB Flowsheet Initial Weight: Not Recorded Date -?-?-?-?-?-?-?-?-?-?-?-?- EGA Weight BP Urine Prot -?-?-?-?-?-?-?-?-?-?-?-?- Glucose FHR FuHt Pres Dilation -?-?-?-?-?-?-?-?-?-?-?-?- Effaced St Visit Note 02/22/23 -?-?-?-?-?-?-?-?-?-?-?-?- 6w 1d 149 lb 6 oz 117/80 -?-?-?-?-?-?-?-?-?-?-?-?- 120 -?-?-?-?-?-?-?-?-?-?-?-?- JV- CRL 1 week o ff from LMP. will bring back in 2 weeks due to h/o multiple losses. started baby asa. JV- CRL 1 week off from LMP. will bring back in 2 weeks due to h/o multiple losses. started baby asa. declines NIPT. 03/09/23 -?-?-?-?-?-?-?-?-?-?-?-?- 8w 2d 149 lb 8 oz 118/75 Nega tive -?-?-?-?-?-?-?-?-?-?-?-?- Negative 150 -?-?-?-?-?-?-?-?-?-?-?-?- SM- no vb crampi ng 04/05/23 -?-?-?-?-?-?-?-?-?-?-?-?- 12w 1d 146 lb 2 oz 113/76 Nega tive -?-?-?-?-?-?-?-?-?-?-?-?- Negative -?-?-?-?-?-?-?-?-?-?-?-?- KW-no vb/jatin g. Visualized HR and movement on handheld US. 05/01/23 -?-?-?-?-?-?-?-?-?-?-?-?- 15w 6d 149 lb 8 oz 114/72 Nega tive -?-?-?-?-?-?-?-?-?-?-?-?- Negative 154 -?-?-?-?-?-?-?-?-?-?-?-?- MH-No VB. Feels well. Less anxious with this but also has son to occupy her. Will do PN labs today 05/31/23 -?-?-?-?-?-?-?-?-?-?-?-?- 20w 1d 151 lb 118/72 -?-?-?-?-?-?-?-?-?-?-?-?- 150 -?-?-?-?-?-?-?-?-?-?-?-?- SM- no vb lof go od fm noregular ctx discussed US findings 07/10/23 -?-?-?-?-?-?-?-?-?-?-?-?- 25w 6d 157 lb 98/70 Negative -?-?-?-?-?-?-?-?-?-?-?-?- Negative 150 26 -?-?-?-?-?-?--?-?-?-?-?-?- SM- no vb lof go od fm n oregular ctx repeat US in 2 weeks 08/07/23 -?-?-?-?-?-?-?-?-?-?-?-?- 29w 6d 160 lb 9 oz 108/68 Nega tive -?-?-?-?--?-?-?-?-?-?-?-?- Negative 140 31 -?-?-?-?-?-?-?-?-?-?-?-?- kw-no vb/lof/ctx . good fm. repeat US done and placenta resolved. feeling bladder pressure at times- sent for culture. 08/23/23 -?-?-?-?-?-?-?-?-?-?-?-?- 32w 1d 162 lb 8 oz 110/76 Nega tive -?-?-?-?-?-?-?-?-?-?-?-?- Negative 145 Cephalic 1 -?-?-?-?-?-?-?-?-?-?-?-?- 50 -1 JV- pt com [place] of front and back pelvic pain that is intermittent and called in twice this week. sending to L&D for steroids and monitoring to r/o ptl. 08/28/23 -?-?-?-?-?-?-?-?-?-?-?-?- 32w 6d 160 lb 2 oz 98/62 Nega tive -?-?-?-?-?-?-?-?-?-?-?-?- Negative 151 33 Cephalic 1 -?-?-?-?-?-?-?-?-?-?-?--?- 50 -1 MH-complet ed [place]. Irreg CTX. No cervical change. No VB, LOF. Good FM. 09/04/23 -?-?-?-?-?-?-?-?-?-?-?-?- 33w 6d 162 lb 6 oz 95/67 Nega tive -?-?-?-?-?-?-?-?-?-?-?-?- Negative 150 34.5 Cephalic -?-?-?-?-?-?-?-?-?-?-?-?- JV- no lof, vagi nal bleeding, or dec fm. irregular contractions 09/20/23 -?-?-?-?-?-?-?-?-?-?-?-?- 36w 1d 165 lb 99/70 -?-?-?-?-?-?-?-?-?-?-?-?- 145 Cephalic 3.5 -?-?-?-?-?-?-?-?-?-?-?-?- 70 -1 KW- no lof /vb/reg ctx. good fm. labor precautions 09/25/23 -?-?-?-?-?-?-?-?-?-?-?-?- 36w 6d 167 lb 4 oz 116/77 Nega tive -?-?-?-?-?-?-?-?-?-?-?-?- Negative 140 37 Cephalic 4 -?-?-?-?-?-?-?-?-?-?-?-?- 70 -1 kw- no lof /vb/ctx. good fm. labor precautions. 10/02/23 -?-?-?-?-?-?-?-?-?-?-?-?- 37w 6d 165 lb 8 oz 130/71 Nega tive -?-?-?-?-?-?-?-?-?-?-?-?- Negative 140 39 Cephalic 5 -?-?-?-?-?-?-?-?-?-?-?-?- 80 -1 KW- no vb/ lof/ctx. good fm. labor precautions. to wp to r/o labor NST FHR Rate Baby A Baseline: 135 Variability:: Moderate Accelerations:: 15 x 15 Decelerations:: None NST Reactive:: Yes FHR Category:: Category I Uterine Activity:: 2-3 minutes ROS Constitutional Constitutional: Denies change in weight, fatigue, fever(s), headache(s), poor appetite or weakness Eyes Eyes: Denies blurry vision, change in vision, floaters, seeing flashes or spots in vision ENT HEENT: Denies dizziness, headache(s), loss taste/smell or sore throat Cardiovascular Cardiovascular: Denies chest pain, dizziness, dyspnea, irregular heart rhythm, lightheadedness, palpitations or rapid heart rate Respiratory/Chest Respiratory/Chest: Denies change in mental status, chest tightness, cough, dyspnea or breast pain Gastrointestinal Gastrointestinal: Denies anorexia, chewing difficulty, constipation, diarrhea or weight changes Genitourinary Genitourinary: Denies difficulty urinating, dysuria, flank pain, genital pain, urinary frequency or urinary urgency Musculoskeletal Musculoskeletal: Denies back pain, difficulty walking, extremity pain, joint pain, muscle cramps or muscle weakness Integumentary Integumentary: Denies lesions or unusual bruising Neurologic Neurologic: Denies abnormal movements, abnormal speech, dizziness, numbness, seizure-like activity, syncope or weakness Psychiatric Psychiatric: Denies behavioral changes, change in appetite, confusion, depression, homicidal ideation, suicidal ideation or suicidal thoughts Endocrine Endocrinology: Denies excessive sweating, polydipsia or polyuria Hematologic/Lymphatic Hematologic/Lymphatic: Denies anemia Allergic/Immunologic Allergic/Immunologic: Denies itchy eyes, lip swelling, throat swelling, tongue swelling or wheezing Vital Signs Vital Signs Vital Signs: 10/02/23 16:31 10/02/23 16:31 10/02/23 16:31 Temperature 98.4 F Pulse Rate 85 Blood Pressure 120/75 BP Systolic 120 BP Diastolic 75 Weight Weight: 165 lb Body Mass Index (BMI) 31.1 Physical Exam Const alert, oriented x3 and no apparent distress General Appearance: cooperative Orientation / Consciousness: awake HEENT normocephalic Neck full ROM Lymph Lymphatic: no lymphadenopathy noted Chest inspection of chest normal Resp normal respiratory effort and normal air movement Effort and Inspection: able to speak in complete sentences and symmetric chest movement GI soft to palpation and non-tender Inspection: gravid Palpation: soft; Negative for tender external exam normal Back/Spine normal to inspection Extremity normal to inspection and full ROM Skin no rashes or lesions noted Psych mental status grossly normal Appearance: grossly normal Speech: normal speech Labs Labs Labs: Blood Type B POSITIVE Antibody Screen NEGATIVE Hct 32.7 % (37-47) L Hgb 10.8 g/dL (12.0-15.0) L Obstetrics Ultrasound Syphilis Total Ab Non-reactive Rubella IgG Antibody Reactive (Nonreactive) Hep Bs Antigen Non-Reactive (Nonreactive) Hepatitis C Antibody Non-Reactive (Nonreactive) Chlamydia DNA (SANDRA) Negative (Negative) N.gonorrhoeae DNA (SANDRA) Negative (Negative) HIV 1&2 Antibody Non-Reactive (Nonreactive) Glucose 1 Hr 50 gm 106 mg/dL (70-140) Assessment & Plan (1) Active labor at term: PLAN: Patient presents IAL, plan expectant management for , pitocin/AROM PRN if needed. Pain management: plans epidural. GBS positive plan IV PCN. Management of any complications: none I have reviewed the [facility] and made any clinically relevant updates. (2) Threatened labor: QUALIFIERS: Trimester: third trimester Qualified Code(s): O47.03 - False labor before 37 completed weeks of gestation, third trimester COMMENT: steroids 08/23/23 (3) Anemia affecting : QUALIFIERS: Trimester: third trimester Qualified Code(s): O99.013 - Anemia complicating , third trimester COMMENT: iron given/stable (4) Placenta previa antepartum: COMMENT: pelvic rest and repeat imaging 28 weeks-RESOLVED (5) GBS (group B streptococcus) UTI complicating : QUALIFIERS: Trimester: third trimester Qualified Code(s): O23.43 - Unspecified infection of urinary tract in , third trimester; B95.1 - Streptococcus, group B, as the cause of diseases classified elsewhere COMMENT: treated at 30 weeks, repeat culture in 4 weeks, treat in labor only PCN (6) History of miscarriage, currently : COMMENT: May ask for more freq visits at 26 wk due to past loss 4 miscarriages took baby asa with last 2 pregnancies and plans to do that this . (7) MTHFR deficiency complicating : QUALIFIERS: Trimester: second trimester Qualified Code(s): O99.282 - Endocrine, nutritional and metabolic diseases complicating , second trimester; E72.12 - Methylenetetrahydrofolate reductase deficiency (8) Supervision of high-risk : QUALIFIERS: Trimester: third trimester Qualified Code(s): O09.93 - Supervision of high risk , unspecified, third trimester COMMENT: PRR , RAJNI 10/08/23 surprise JESÚS Diego ([place] 26 wk demise) Ag (9) : QUALIFIERS: Weeks of gestation: 37 weeks Qualified Code(s): Z3A.37 - 37 weeks gestation of COMMENT: declined genetic ntd & carrier testing. anatomy nl Charges/Coding Multi Select Codes Urinary/Genital Urinary/Genital CPT Codes: No Charge
[2023-10-02 18:51] LABS: Absolute Lymphocyte Count 2.21 X10^3/uL (0.83-4.51); Absolute Neutrophil Count 7.8 X10^3/uL (2.0-7.7); Basophil# 0.04 X10^3/uL; Basophil% 0.4 % (0-1); Eosinophil# 0.06 X10^3/uL; Eosinophils% 0.6 % (0-5); Hematocrit 34.1 % (37-47); Hemoglobin 11.2 g/dL (12.0-15.0); Lymphocyte # 2.21 X10^3/ul (0.83-4.51); Lymphocyte % 20.3 % (19-41); Mean Corp Hgb Conc 32.8 g/dL (32-36); Mean Corpuscular Hgb 28.9 pg (27.0-32.0); Mean Corpuscular Volume 87.9 fL (81-99); Mean Platelet Vol. 11.8 fl (6.2-12.0); Monocyte# 0.74 X10^3/uL; Monocyte% 6.8 % (0-10); NRBC Flagged by Analyzer 0 % (0-5); Neutrophil # 7.77 X10^3/uL (2.7-7.7); Neutrophil % 71.2 % (47-70); Platelet Count 207 K/mm3 (150-450); RBC Distribution Width CV 14.6 % (11.6-14.6); RBC Distribution Width SD 46.3 fl (35.1-43.9); Red Blood Count 3.88 M/mm3 (4.2-5.4); White Blood Count 10.9 K/mm3 (4.4-11.0)
[2023-10-02] MEDS: Penicillin G Pot 5,000,000 UNITS in 0.9% Normal Saline (100mL MB+) 100 ML 150 UNITS IV (18:56)
[2023-10-02] MEDS: LACTATED RINGERS 500 ML 999 ML IV ×2 (18:59→21:46)
[2023-10-02 19:37] LABS: Syphilis Antibodies Non-reactive
[2023-10-02] MEDS: fentaNYL-bupivacaine (epidural) 100 ML BAG EPIDURAL (20:27)
--- NOTE | 2023-10-02 21:36 | PCM.PN.BLA ---
Progress Note comfortable with epidural current tracing: FHT: 120 Moderate variability reactive no decelerations category I tracing [place]: irregular Contractions Membranes:intact SVE:6-7/90/-1 midposition A/P: Continue with position changes Start pitocin per protocol Plan AROM when treated for GBS Epidural per anesthesia PCN for GBS prophylaxis Anticipate Dr Flores aware of above assessment and agrees with plan of care Assessment & Plan Assessment/Plan (1) Active labor at term: (2) Threatened labor: QUALIFIERS: Trimester: third trimester Qualified Code(s): O47.03 - False labor before 37 completed weeks of gestation, third trimester (3) Anemia affecting : QUALIFIERS: Trimester: third trimester Qualified Code(s): O99.013 - Anemia complicating , third trimester (4) Placenta previa antepartum: (5) GBS (group B streptococcus) UTI complicating : QUALIFIERS: Trimester: third trimester Qualified Code(s): O23.43 - Unspecified infection of urinary tract in , third trimester; B95.1 - Streptococcus, group B, as the cause of diseases classified elsewhere (6) History of miscarriage, currently : (7) MTHFR deficiency complicating : QUALIFIERS: Trimester: second trimester Qualified Code(s): O99.282 - Endocrine, nutritional and metabolic diseases complicating , second trimester; E72.12 - Methylenetetrahydrofolate reductase deficiency (8) Supervision of high-risk : QUALIFIERS: Trimester: third trimester Qualified Code(s): O09.93 - Supervision of high risk , unspecified, third trimester (9) : QUALIFIERS: Weeks of gestation: 37 weeks Qualified Code(s): Z3A.37 - 37 weeks gestation of Multi Select Codes Urinary/Genital Urinary/Genital CPT Codes: No Charge
[2023-10-02] MEDS: Oxytocin 15 Units/NS 250ml 15 UNITS/250 ML IV.SOLN 2 UNITS IV (22:00)
[2023-10-02] MEDS: Penicillin G 3,000,000 Units 50 ML 100 UNITS IV (23:40)
[2023-10-03] VITALS (44 sets, daily range): BP systolic 98–113; BP diastolic 52–70; PULSE 54–81; RESP 16–18; TEMP 36.1–37.1; O2SAT 95–100
[2023-10-03] MEDS: fentaNYL-bupivacaine (epidural) 100 ML BAG EPIDURAL (00:05)
--- NOTE | 2023-10-03 01:34 | OP.PCM_ITS ---
Assessment & Plan (1) Vaginal delivery: COMMENT: KW IAL 37.6 Girl (2) Anemia affecting : QUALIFIERS: Trimester: third trimester Qualified Code(s): O99.013 - Anemia complicating , third trimester COMMENT: iron given/stable (3) Placenta previa antepartum: COMMENT: pelvic rest and repeat imaging 28 weeks-RESOLVED (4) GBS (group B streptococcus) UTI complicating : QUALIFIERS: Trimester: third trimester Qualified Code(s): O23.43 - Unspecified infection of urinary tract in , third trimester; B95.1 - Streptococcus, group B, as the cause of diseases classified elsewhere COMMENT: treated at 30 weeks, repeat culture in 4 weeks, treat in labor only PCN (5) Supervision of high-risk : QUALIFIERS: Trimester: third trimester Qualified Code(s): O09.93 - Supervision of high risk , unspecified, third trimester COMMENT: PRR , RAJNI 10/08/23 surprise JESÚS Diego ([place] 26 wk demise) Ag (6) : QUALIFIERS: Weeks of gestation: 37 weeks Qualified Code(s): Z3A.37 - 37 weeks gestation of COMMENT: declined genetic ntd & carrier testing. anatomy nl Maternal Data Information RAJNI Calculator Estimated Delivery Date Method Current WG Current Estimate 10/17/23 Ultrasound #1 38w 0d Other Estimates 10/08/23 LMP (Certain) 39w 2d Final RAJNI: 10/03/23 Final RAJNI Source: US >20 weeks Gestational age: 38.0 weeks Vaginal Delivery Maternal Presentation Maternal Presentation: Active Labor Maternal Presentation: Progressed well to 10cm dilated and made steady progress with effective maternal pushing. Delivered the head in CATHIE presentation. The head was delivered atraumatically and no nuchal cord was identified. The anterior and posterior shoulders delivered without complication followed by the rest of the infant and the infant was placed on the maternal abdomen. Delayed cord clamping was employed for approximately 3 minutes. Cord was clamped and cut and gentle traction was applied to the cord and the placenta delivered spontaneously. Immediately following, it was noted to be intact with a 3 vessel cord. The perineum and vagina were inspected and noted to have a first degree laceration which was repaired with 3-0 Vicryl in the usual fashion. EBL was 100cc. Patient and infant tolerated delivery well. Apgars 8/9. Dr Flores notified of vaginal delivery and orders reviewed. Physician agrees with current plan of care. 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: Pamela Vaughan Type of Anesthesia: Epidural Estimated Blood Loss: 100 Findings Presentation: Vertex Amniotic Membrane Rupture Type: Artificial Amniotic Fluid Description: Clear Placental Delivery Description: Spontaneous Placenta Disposition: [facility] Cord Vessel Description: 3 Vessels Cord Entanglement: None A Gender: Female (1 minute): 8 (5 minute): 9 Delayed Cord Clamping: Yes Post Vaginal Delivery Medications Given After Delivery: IV Pitocin Episiotomy Description: None Laceration: 1st degree Multi Select Codes Urinary/Genital Urinary/Genital CPT Codes: 36357 Vaginal Delivery [facility]
--- NOTE | 2023-10-03 01:39 | DCINST_ITS ---
Discharge Instructions Diet Discharge Diet: No restrictions Activity Discharge Activity: Return to Normal Activity May resume sexual activity in: 6-8 weeks Dressing / Incision Call your doctor if you observe: Fever of 101 or Higher, Coldness, Increased Pain, Numbness or Tingling, Change in Color, Inability to urinate, Inability to have a bowel movement, Using more than 1 pad per hour, Shortness of breath, Dizziness, Fainting spells, Swelling in the ankles, Chest pain, Increased palpitations (irregular heartbeat), Calf discomfort and Uncontrolled pain Follow Up Care Please Follow Up With: Pamela Vaughan CNM When: Please call the office to schedule your follow up appointment in 6 weeks. If you had high blood pressure please call to schedule an appointment in 2 weeks. Test Results: Test results from this visit will be discussed in further detail at your follow- up appointment, if applicable. Discharge Plan Admission Admit Date/Time: 10/02/23 18:20 Attending Provider: Pamela Vaughan Primary Care Provider: Tyrone Jackson Discharge Orders/Prescriptions Prescriptions: No Action PNV-DHA 27 mg iron-1 mg -300 mg capsule 1 cap PO DAILY famotidine 40 mg tablet 40 mg PO DAILY aspirin [Adult Aspirin Regimen] 81 mg tablet,delayed release (DR/EC) 81 mg PO DAILY ferrous sulfate 325 mg (65 mg iron) tablet 325 mg PO DAILY magnesium oxide 500 mg capsule 500 mg PO DAILY Referrals / Follow Up: Tyrone Jackson MD [Primary Care Provider] -
[2023-10-03] MEDS: Oxytocin 15 Units/NS 250ml 15 UNITS/250 ML IV.SOLN 83 UNITS IV (01:53)
[2023-10-03] MEDS: 0.9% Saline Lock 10 ML Syringe IV (05:01)
[2023-10-03] MEDS: Ibuprofen 600 MG Tablet PO ×3 (08:08→21:51)
[2023-10-03] MEDS: Acetaminophen 500 MG Tablet 1000 MG PO ×2 (13:03→19:35)
[2023-10-03] MEDS: Famotidine 20 MG Tablet 40 MG PO (16:44)
[2023-10-04] MEDS: Ibuprofen 600 MG Tablet PO (04:53)
[2023-10-04] MEDS: Acetaminophen 500 MG Tablet 1000 MG PO (04:53)
[2023-10-04 04:54] VITALS: BP 120/75; PULSE 72; RESP 16; TEMP 36.6; O2SAT 97
[2023-10-04 04:55] VITALS: PULSE 69; TEMP 36.6; O2SAT 95
[2023-10-04 04:56] VITALS: BP 120/75; PULSE 72
[2023-10-04 07:58] VITALS: BP 104/61; PULSE 68; TEMP 36.8; O2SAT 96
[2023-10-04 07:59] VITALS: BP 104/61; PULSE 63; RESP 18; TEMP 36.8; O2SAT 96
--- NOTE | 2023-10-04 08:02 | PCM.PN.OB ---
Subjective Subjective Patient doing well without complaints. Tolerating PO. Ambulating and voiding without difficulty. feeding well. Denies chest pain, shortness of breath, calf pain/swelling, fevers, chills, lightheadedness. Objective Data Objective Data Vital Signs: Vital Signs Temp Pulse Resp BP Pulse Ox O2 Del Method 98.2 F 68 16 104/61 96 Room Air 10/04/23 07:58 10/04/23 07:58 10/04/23 04:54 10/04/23 07:58 10/04/23 07:58 10/04/23 04:54 Oxygen Delivery Method Room Air Weight: 165 lb Body Mass Index (BMI) 31.1 Intake & Output: Intake and Output for Last 24 Hours 10/02/23 10/03/23 10/04/23 23:59 23:59 23:59 Intake Total 2038.83 / 2038.83 473.6 / 473.6 Output Total 800 / 800 1600 / 1600 Balance 1238.83 / 1238.83 -1126.4 / -1126.4 Lab / Micro Data 10/02/23 18:30 ROS Constitutional Constitutional: Reports systems reviewed and no addt'l complaints, except as documented Cardiovascular Cardiovascular: Reports systems reviewed and no addt'l complaints, except as documented Respiratory/Chest Respiratory/Chest: Reports systems reviewed and no addt'l complaints, except as documented Gastrointestinal Gastrointestinal: Reports systems reviewed and no addt'l complaints, except as documented Physical Exam Const alert, oriented x3 and no apparent distress HEENT Head and Scalp: atraumatic Resp normal respiratory effort GI soft to palpation and non-tender Bimanual Exam - Vag & Uterus: uterus non-tender Uterus Palpation: uterus fundus firm (below Umbilicus) Assessment & Plan (1) Anemia affecting : QUALIFIERS: Trimester: third trimester Qualified Code(s): O99.013 - Anemia complicating , third trimester COMMENT: iron given/stable PLAN: Plan s/p PPD # 1 1. routine post delivery care 2. breast feeding- support given 3. rh positive 4. rubella immune
--- NOTE | 2023-10-08 15:04 | NURSING ---
Follow up phone call made, no answer, voicemail left
== END 2023-10-04 10:15 | disposition home or self-care (01) | DRG 806 ==
LOC: WPOUT 18:31 → WP 10-03 01:23
PROVIDERS: Admitting Provider Advanced Practice Midwife; PCP Family Medicine; Referring Provider Advanced Practice Midwife; Visit Provider Advanced Practice Midwife
DX: O26.23 Pregnancy care for patient with recurrent pregnancy loss, third trimester (principal); Z37.0 Single live birth; E72.12 Methylenetetrahydrofolate reductase deficiency; O99.284 Endocrine, nutritional and metabolic diseases complicating childbirth; O70.0 First degree perineal laceration during delivery; O99.824 Streptococcus B carrier state complicating childbirth; O99.02 Anemia complicating childbirth; Z3A.38 38 weeks gestation of pregnancy; Z79.82 Long term (current) use of aspirin
CPT/HCPCS: 59025; 59050; 85025; 86780; 86850; 86900; 86901; 99221; J7120; A4216; G0378

== ENCOUNTER → 2024-11-13 | Outpatient (CLI) | payer BC, SELFPAY ==
[2024-11-17 22:51] LABS: HPV Reflexed? NOT INDICATED
== END | disposition home or self-care (01) ==
LOC: LABSPEC 11:14
PROVIDERS: PCP Family Medicine; Referring Provider Advanced Practice Midwife; Visit Provider Advanced Practice Midwife
DX: Z12.4 Encounter for screening for malignant neoplasm of cervix (principal)
CPT/HCPCS: 88175; G0145

== ENCOUNTER → 2025-04-23 | Outpatient (CLI) | payer BC, SELFPAY | END | disposition home or self-care (01) | PROVIDERS: PCP Family Medicine; Visit Provider Advanced Practice Midwife | DX: N93.9 Abnormal uterine and vaginal bleeding, unspecified (principal) | CPT/HCPCS: 36415; 83036; 84402; 84439; 84443 ==

== ENCOUNTER → 2025-04-30 | Outpatient (CLI) | payer BC, SELFPAY ==
--- NOTE | 2025-04-30 10:55 | US_ITS ---
PROCEDURE: US/Transvaginal Non-
== END | disposition home or self-care (01) ==
LOC: OPUS 10:51 → US 10:52
PROVIDERS: PCP Family Medicine; Referring Provider Advanced Practice Midwife; Visit Provider Advanced Practice Midwife
DX: N93.9 Abnormal uterine and vaginal bleeding, unspecified (principal)
CPT/HCPCS: 76830